=== PATIENT | male | born 1950 | race Caucasian/White ===

== ENCOUNTER → 2017-05-21 08:17 | Outpatient (CLI) | payer MEDICARE, MEDICAID, SELFPAY | DX: M79.671 Pain in right foot (principal); M79.672 Pain in left foot; G62.1 Alcoholic polyneuropathy | CPT/HCPCS: 99202 ==

== ENCOUNTER → 2017-06-19 12:34 | Outpatient (CLI) | payer MEDICARE, MEDICAID, SELFPAY ==
--- NOTE | 2017-06-19 | US_ITS ---
US Arterial Ankle Brachial Ind INDICATION: Leg pain, left-sided rest pain, bilateral claudication, hypertension, hyperlipidemia with peripheral vascular disease ORDERING PHYSICIAN: Ana Paula Maldonado DPM PATIENT AGE: 66 years TECHNIQUE: Segmental pressures obtained of both right and left leg. These are compared to brachial blood pressure to yield index at each level sampled including summary EDWARD. The data sheets from the procedure are available in PACS FINDINGS Rest study only performed today No prior studies available for comparison. Blood pressures reported are in millimeters mercury. RIGHT LEG EDWARD = 0.9. Right TBI is 0.9. Brachial BP: 109 Thigh BP: 88 Calf BP: 73 Ankle PT: 98 Ankle DP : 116 Digit =99 LEFT LEG EDWARD = 0.9. The left TBI 0.7 Brachial BPD: 112 Thigh BP: 88 Calf BP: 90 Ankle PT:97 Ankle DP: 115 Digit = 76 Pulses and waveforms: Diminished pulses with abnormal waveforms IMPRESSION: The ABIs are at lower limits of normal. Normal right TBI with borderline low left TBI suggesting small vessel disease on the left
== END ==
PROVIDERS: PCP Emergency Medicine; Visit Provider Podiatrist
DX: L97.922 Non-pressure chronic ulcer of unspecified part of left lower leg with fat layer exposed (principal)
CPT/HCPCS: 93922

== ENCOUNTER 2017-07-05 15:00 | Outpatient (RCR) | payer MEDICARE, MEDICAID, SELFPAY ==
--- NOTE | 2017-06-17 14:35 | HMH.PTOPWND ---
Rehab Outpt Wound Evaluation Rehab OP Wound Evaluation Start: 06/17/17 14:15 Freq: Status: Active Protocol: Document 06/17/17 14:16 PHOSILVERIO (Rec: 06/17/17 14:34 PHORNE [id number]) Electronically Signed By Royal Eaton, PT 06/17/17 14:16 Subjective/History History History Pt presents with ~ 6 mo hx of left plantar great toe wound with insidious onset of symptoms. He has hx of HTN, HL , COPD, gout, and peripheral neuropathy. He reports no c/o pain at this time and he has an offloading shoe insert that he wears at all times. He is a [facility] [place] home resident and they have been dressing with Medi- honey since the wound began. He also has hx of poor arterial circulation due to atherosclerosis. Wound Eval Wound Left Dorsal Great Toe Is This a Chronic Wound Yes Wound Length (cm) 0.6 Wound Width (cm) 0.3 Wound Depth (cm) 0.2 Wound Bed Appearance Dusky Red Percentage Granulated (%) 100 Wound Margins Description callous Drainage Description Serous Drainage Amount Scant Drainage Odor No Odor Wound Topical Solution/Irrigant Saline Irrigant Packing Type Collagen Primary Dressing Composite Wound Debridement Method Sharps Forceps Wound Debridement Amount of Tissue Minimal Removed Wound Debridement Result Healthy Tissue Revealed Wound Problems/Impairments Impairments Problems/Impairmments Impaired Walking Wound Care Needs Impaired Self Care/Self Management Prognosis Rehab Potential Good Clinical Impression Consistent with Diagnosis Yes Short Term Goals Number of Weeks 4 Decrease Wound Area Yes: by 25% Chcf Goals Number of Weeks 8 Decrease Wound Area Yes: by 75% Patient to be Ind w/ Home Wound Care/ Yes Dressing Changes Outpatient Therapy Plan of Care Treatment Plan May Include Therapeutic Exercise Including Home Yes Exercise Program Manual Therapy Techniques Yes Neuromuscular Re-education Yes Electrical Stimulation Yes Ultrasound/Phonophoresis Yes Orthotics/Bracing/Splinting
== END 2017-07-05 15:01 | disposition home or self-care (01) ==
LOC: PT 15:00
PROVIDERS: PCP Emergency Medicine; Visit Provider Podiatrist
DX: L97.522 Non-pressure chronic ulcer of other part of left foot with fat layer exposed (principal)
CPT/HCPCS: 97162; 97597

== ENCOUNTER → 2017-07-06 13:37 | Outpatient (REF) | payer MEDICARE, MEDICAID, SELFPAY ==
[2017-07-06 13:55] LABS: Anion Gap 8.6 mEq/L (5-15); Blood Urea Nitrogen 12 mg/dL (7-18); Carbon Dioxide 32 mmol/L (21.0-32.0); Chloride 102 mmol/L (98-107); Creatinine,Serum 1.08 mg/dL (0.70-1.30); Estimated Glomerular Filt Rate 68 ml/min (>60); GFR (African American) 83 ML/MIN (>60); Glucose 110 mg/dL (74-106); Potassium 4.6 mmoL/L (3.5-5.1); Sodium 138 mmol/L (136-145)
== END ==
LOC: LAB 13:37
PROVIDERS: Visit Provider Emergency Medicine
DX: E87.5 Hyperkalemia (principal)
CPT/HCPCS: 80048

== ENCOUNTER → 2017-08-04 14:06 | Outpatient (REF) | payer MEDICARE, MEDICAID, SELFPAY ==
[2017-08-04 15:24] LABS: Anion Gap 12.5 mEq/L (5-15); Blood Urea Nitrogen 10 mg/dL (7-18); Carbon Dioxide 32 mmol/L (21.0-32.0); Chloride 100 mmol/L (98-107); Creatinine,Serum 1.08 mg/dL (0.70-1.30); Estimated Glomerular Filt Rate 68 ml/min (>60); GFR (African American) 83 ML/MIN (>60); Glucose 94 mg/dL (74-106); Potassium 4.5 mmoL/L (3.5-5.1); Sodium 140 mmol/L (136-145)
== END ==
LOC: LAB 14:06
PROVIDERS: Visit Provider Emergency Medicine
DX: E87.5 Hyperkalemia (principal)
CPT/HCPCS: 80048

== ENCOUNTER → 2017-12-23 15:28 | Outpatient (CLI) | payer MEDICARE, MEDICAID, SELFPAY ==
--- NOTE | 2017-12-23 15:55 | XR_ITS ---
XR foot wt bearing LT 3V HISTORY: ITS.REASON: infection left great toe ORDERING PHYSICIAN: Ana Paula Maldonado DPM PATIENT AGE: 67 years COMPARISON: None FINDINGS: There is diffuse osteopenia. Further decreased density is present involving the distal aspect of the proximal phalanx with a bony erosion involving the distal and lateral aspect of the proximal phalanx. Slight transverse decreased density is also noted at this area could be related to fracture. Lucency is present at the distal aspect of the first metatarsal. The cortex is preserved at this area. Flexion deformity present of the toes There is an area of exostosis along the posterior and superior aspect of the calcaneus suggesting a Orlando deformity. Retrocalcaneal Fat pad is preserved. IMPRESSION: 1. Erosion of the distal lateral aspect of the proximal phalanx of the great toe with suspected nondisplaced transverse fracture. The erosive change may be related to osteomyelitis 2. Diffuse osteopenia. 3. Orlando deformity of the calcaneus
[2017-12-23 16:13] LABS: Basophils # 0.1 K/mm3 (0-0.2); Basophils % 0.9 % (0.1-2.0); Eosinophils # 0.5 K/mm3 (0.0-0.4); Eosinophils % 4.3 % (0.1-12.0); Hematocrit 55.1 % (42.0-52.0); Hemoglobin 17.1 g/dL (14.1-18.0); Lymphocytes # 1.9 K/mm3 (0.7-4.5); Lymphocytes % 18.1 K/mm3 (10-50); Mean Corpuscular Hemoglobin 29.4 pg (27.0-31.2); Mean Corpuscular Volume 94.9 fl (80-94); Mean Platelet Volume 8.4 fl (7.4-10.4); Monocytes # 1.1 K/mm3 (0.1-1.0); Monocytes % 10.6 % (1.7-9.3); Neutrophils # 6.9 K/mm3 (1.8-7.8); Neutrophils % 66.2 % (37.0-80.0); Platelet Count 554 K/mm3 (142-424); Red Blood Count 5.81 M/mm3 (4.60-6.20); Red Cell Distribution Width 15.6 % (11.5-17.5); White Blood Count 10.5 K/mm3 (4.8-10.8)
[2017-12-23 16:53] LABS: Erythrocyte Sedimentation Rate 41 mm/hr (0-20)
[2017-12-23 18:09] LABS: C-Reactive Protein 7.3 mg/L (0.0-0.9)
== END ==
PROVIDERS: PCP Emergency Medicine; Visit Provider Podiatrist
DX: Z51.89 Encounter for other specified aftercare (principal); Z91.81 History of falling
CPT/HCPCS: 36415; 73630; 85025; 85651; 86140

== ENCOUNTER → 2018-01-01 07:49 | Outpatient (CLI) | payer MEDICARE, MEDICAID, SELFPAY ==
--- NOTE | 2018-01-01 07:50 | MR_ITS ---
MR foot LT wo/w con Ordering Physician: Ana Paula Maldonado DPM Patient Age: 67 years: Male HISTORY: ITS.REASON: pain Cellulitis great toe with suspect osteomyelitis. Swelling. Spot planar surface of the foot that will not heal. Past one year. Worse past 2 weeks. TECHNIQUE: Multiplanar multisequence imaging. Includes T1, & STIR image in all 3 planes . Postcontrast coronal and axial images following 17 mL ProHance. COMPARISON :Plain films left foot 12/23/2017 FINDINGS GREAT TOE Transverse fracture is seen at the distal most aspect of the proximal phalanx great toe. This was noted on previous plain films and there appears to be significant over one bone width dorsal displacement of the distal fracture fragment as suggested on the sagittal image 7. Irregular bone is seen at the fracture site. Bone edema is seen throughout the entire proximal phalanx including extending to the base.. Postcontrast images show diffuse enhancement throughout the proximal phalanx, proximal to the transverse fracture-findings are highly suspect for osteomyelitis throughout the proximal phalanx. I would note that in contrast the distal fracture fragment at the very head of the proximal phalanx does not enhance, axial image 13 There is bone edema enhancement enhancement of the distal phalanx. Again suspect for osteomyelitis distal phalanx great toe. Diffuse soft tissue edema with enhancing soft tissues of throughout the great toe. Second Toe. Prominent flexion hammertoe deformity. The sagittal images show a well formed proximal phalanx with prominent flexion at PIP joint. However at the DIP joint the head of middle phalanx is not well visualized and there is a small area of fluid signal here at & overlying the DIP joint measuring 4 times nearly 5 mm length, as seen on on sagittal image 17... I do not see definitive enhancement to support or confirm osteomyelitis at second toe. And there seems to be normal signal otherwise within the distal phalanx & proximal aspect of the middle phalanx. No significant bone edema... Follow-up coned-down plain films of the second toe may be helpful in follow-up Third Toe: also demonstrates prominent flexion/hammertoe deformity however is seen on sagittal image 20 the DIP joint of the third toe has a more normal appearance as does the head of middle phalanx. Flexion deformity also at fourth and fifth toe noted . The metatarsals appear intact. There is some mild edema from the great toe tracking proximally into the soft tissues at ball of foot. Also some minimal edema tracking along along the tendon sheath for I believe the the flexor hallucis longest tendon in this region. The sesamoids appear intact with normal signal. I would also note mild edema reflecting cellulitis with subtle enhancement extending to the soft tissues just at the plantar aspect of the cuneiform bones.. This feature most evident at I believe quadratus plantae /adductor hallucismuscle region as seen on coronal postcontrast image 23-25q day There are some mild degenerative subchondral cystic changes about the tarsometatarsal joints suggested on coronal image 13 ----IMPRESSION 1. LEFT GREAT TOE: Diffuse soft tissue swelling & cellulitis great toe. Fracture transversing distal most aspect proximal phalanx great toe. . Posterior displacement of distal fracture fragment, ( w/greater than one bone width posterior displacement.) Enhancing marrow edema proximal phalanx. This most evident towards fracture but is also seen throughout the entire proximal fragment phalanx great toe,-extending to the base proximal phalanx.-. Appearance concerning & suspect for for developing osteomyelitis (particularly since the distal fragment proximal phalanx does not enhance) Edema & mild enhancement throughout
[2018-01-01 08:17] LABS: Blood Urea Nitrogen 11 mg/dL (7-18); Creatinine,Serum 1.06 mg/dL (0.70-1.30); Estimated Glomerular Filt Rate 70 ml/min (>60); GFR (African American) 84 ML/MIN (>60)
--- NOTE | 2018-01-01 09:10 | HMH.ITSHM ---
ACETAMINOPHEN ALLOPURINOL ASPIRIN ATENOLOL MULTIVITAMIN OYST ARPIT-VIT D SIMVASTATIN TRAMADOL WARFARIN CIPRO CLINDAMYCIN
--- NOTE | 2018-01-01 15:39 | XR_ITS ---
XR chest 2V HISTORY: ITS.REASON: HTN,H/O TOBACCO DEPENDENCE ORDERING PHYSICIAN: Ana Paula Maldonado DPM PATIENT AGE: 67 years COMPARISON: 01/05/2014 FINDINGS: Unremarkable cardiovascular structures. There is diffuse prominence of the interstitium. No lobar consolidation or collapse. No acute bony anomalies. IMPRESSION: Diffuse interstitial fibrosis
[2018-01-01 15:53] LABS: Basophils # 0.1 K/mm3 (0-0.2); Basophils % 0.7 % (0.1-2.0); Eosinophils # 0.3 K/mm3 (0.0-0.4); Eosinophils % 2.5 % (0.1-12.0); Hematocrit 55.3 % (42.0-52.0); Hemoglobin 17.7 g/dL (14.1-18.0); Lymphocytes # 1.9 K/mm3 (0.7-4.5); Lymphocytes % 16.2 K/mm3 (10-50); Mean Corpuscular Hemoglobin 29.6 pg (27.0-31.2); Mean Corpuscular Volume 92.4 fl (80-94); Mean Platelet Volume 8.9 fl (7.4-10.4); Monocytes # 1.1 K/mm3 (0.1-1.0); Monocytes % 9.3 % (1.7-9.3); Neutrophils # 8.4 K/mm3 (1.8-7.8); Neutrophils % 71.3 % (37.0-80.0); Platelet Count 505 K/mm3 (142-424); Red Blood Count 5.98 M/mm3 (4.60-6.20); White Blood Count 11.8 K/mm3 (4.8-10.8)
[2018-01-01 16:42] LABS: Hemoglobin A1C 6.1 % (0.0-7.0)
[2018-01-01 16:43] LABS: Erythrocyte Sedimentation Rate 21 mm/hr (0-20)
== END ==
PROVIDERS: Orthopaedic Surgery; PCP Emergency Medicine; Visit Provider Podiatrist
DX: L03.032 Cellulitis of left toe (principal); L97.521 Non-pressure chronic ulcer of other part of left foot limited to breakdown of skin; S92.402A Displaced unspecified fracture of left great toe, initial encounter for closed fracture
CPT/HCPCS: 36415; 71046; 73720; 82565; 83036; 84520; 85025; 85651; 93005; A9576

== ENCOUNTER → 2018-01-14 11:35 | Outpatient (CLI) | payer MEDICARE, MEDICAID, SELFPAY ==
--- NOTE | 2018-01-14 11:37 | CA_ITS ---
PROCEDURE: 2-D M-mode and color Doppler study INDICATIONS FOR THE TEST: Chest pain COPD+ Heart Murmur Tobacco Smoking+ Palpitations Fatigue Syncope Edema Hypertension+Diabetes Mellitus Rheumatic Fever SOB VALIENTE Obesity Hyperlipidemia+ Family History HD Additional History Afib, CAD, MV disease PATIENT INFORMATION HEIGHT: 69 WEIGHT: 185 GENDER: Male B/P: 122/64 2-D/M-MODE INTERPRETATION: 2-D MEASUREMENTS OBSERVED VALUES IN CMS Right Ventricular Dimension (RVDd) 3.1 Interventricular Septum (Thickness)(IVsd) 0.9 Left Ventricular Internal Dimensions(LVIDd) 5.7 Left Ventricular Posterior Wall (Thickness)(LVPWd) 0.9 Aortic Root 4.1 Aortic Cusp Separation 2.4 Left Atrial Dimensions (LAD) 5.2 2D 1. Left atrium is moderately enlarged, left ventricle is normal size, visually estimated ejection fraction of 40-45%, there is mild left ventricular global hypokinesis. 2. The right atrium is moderately enlarged, right ventricle is mildly dilated with normal contractility. 3. The aortic valve is thickened and calcified leaflet continue to display mobility. 4. The mitral valve has mitral calcification, leaflets are minimally thickened. 5. The pulmonic valve is poorly visualized. 6. No significant pericardial effusion noted. DOPPLER INTERROGATION: Doppler interrogation of the aortic, mitral and tricuspid valvular presence of moderate mitral and mild tricuspid regurgitation, tricuspid regurgitation, jet velocity is insufficient for calculation of the right ventricular systolic pressure, diastolic parameters are inconclusive. CONCLUSION: 1. Moderate biatrial enlargement, normal left ventricular size, visually estimated ejection fraction of 40-45% with mild left ventricular global hypokinesis. 2. Moderate mitral and mild tricuspid regurgitation 3. No significant pericardial effusion noted.
--- NOTE | 2018-01-14 11:41 | NM_ITS ---
History and Indications: Obesity, hypertension, hyperlipidemia, tobacco use, family history and syncope Procedure: Patient received a 0.4 mg of Lexiscan, resting heart rate was 90 bpm resting blood pressure 122/64 with Lexiscan maximum heart rate achieved was 1 30 bpm which is less than 85% of the maximum predicted heart rate and a blood pressure was 111/63. With Lexiscan no symptoms reported. Electrocardiogram: Resting echocardiogram showed atrial fibrillation, with Lexiscan less than 1.[address] segment depression noted from the baseline EKG. The EKG portion of the Lexiscan Myoview is nondiagnostic. Cardiac stress and resting SPECT images: Cardiac stress and resting SPECT images were obtained using technetium 99 Myoview 32.2 mCi at stress and 10.5 mCi at rest. Gated SPECT further analysis of segmental wall motion and calculation of the ejection fraction also done. Cardiac stress and rest images show uniform myocardial activity without segmental perfusion abnormality, computer derived ejection fraction 38% with no regional wall motion abnormality, however during this study patient was in atrial fibrillation which may underestimate the ejection fraction by gated SPECT, right ventricle is not well visualized. Conclusion: 1. The EKG portion of the Lexiscan Myoview is nondiagnostic. 2. No scintigraphic evidence of reversible ischemia seen, computer derived ejection fraction is 38% with no regional wall motion abnormality, however during this study patient was in atrial fibrillation underestimate the ejection fraction by gated SPECT, and echocardiogram will be better modality to evaluate left ventricular systolic function.
--- NOTE | 2018-01-14 12:28 | HMH.ITSHM ---
ALLOPURINOL ASA ATENOLOL LOVENOX SIMVASTATIN SPIRIVA TRAMADOL
== END ==
PROVIDERS: PCP Emergency Medicine; Visit Provider Nurse Practitioner Family
DX: I25.10 Atherosclerotic heart disease of native coronary artery without angina pectoris (principal); I34.8 Other nonrheumatic mitral valve disorders; I48.91 Unspecified atrial fibrillation
CPT/HCPCS: 78452; 93017; 93306; A9502; J2785

== ENCOUNTER → 2018-02-06 16:29 | Outpatient (CLI) | payer MEDICARE, MEDICAID, SELFPAY ==
--- NOTE | 2018-02-06 16:48 | XR_ITS ---
XR foot wt bearing LT 3V HISTORY: Follow-up osteomyelitis ORDERING PHYSICIAN: Ana Paula Maldonado DPM PATIENT AGE: 67 years COMPARISON: 12/23/2017 FINDINGS: Progressive erosive changes are present at the interphalangeal joint of the great toe with lateral angulation of the distal phalanx. There is diffuse osteopenia with loss of the joint space of the interphalangeal joint. Flexion deformity involves the second through fifth digits. IMPRESSION: Progressive osteomyelitis and septic arthritis of the interphalangeal joint of the great toe
[2018-02-06 17:16] LABS: C-Reactive Protein 3.8 mg/L (0.0-0.9)
[2018-02-06 18:05] LABS: Erythrocyte Sedimentation Rate 16 mm/hr (0-20)
== END ==
PROVIDERS: PCP Emergency Medicine; Visit Provider Orthopaedic Surgery
DX: Z01.818 Encounter for other preprocedural examination (principal); M86.9 Osteomyelitis, unspecified; L03.032 Cellulitis of left toe
CPT/HCPCS: 36415; 73630; 85651; 86140

== ENCOUNTER → 2018-03-25 13:37 | Outpatient (CLI) | payer MEDICARE, MEDICAID, SELFPAY ==
--- NOTE | 2018-03-25 13:41 | XR_ITS ---
XR foot LT min 3V HISTORY: Follow-up amputation ITS.REASON: sp LT foot 1st toe amputation dos 02/17/18 ORDERING PHYSICIAN: Tian Lentz MD PATIENT AGE: 67 years COMPARISON: 02/06/2018 FINDINGS: There has been interval amputation at the first metatarsophalangeal junction. There is some minimal soft tissue calcification at the amputation site. The distal aspect of the first metatarsal shows no obvious erosive change. There is no fracture proximal phalanx of the fourth toe. Flexion deformity involves the toes. IMPRESSION: Status post amputation at the first metatarsophalangeal junction with no erosive change at this area.
== END ==
PROVIDERS: PCP Emergency Medicine; Visit Provider Orthopaedic Surgery
DX: Z89.412 Acquired absence of left great toe (principal)
CPT/HCPCS: 73630

== ENCOUNTER → 2019-01-02 12:44 | Outpatient (CLI) | payer MEDICARE, MEDICAID, SELFPAY ==
--- NOTE | 2019-01-02 12:46 | CA_ITS ---
APPROVED REPORT EXAM: Comprehensive 2D, Doppler, and color-flow Echocardiogram Gerontological Nurse Practitioner: Courtney Latif RVT Ht: 6 ft 0 in Wt: 176lbs BSA: 2.02 BP: 142/76 mmHg Indications: Congestive Heart Failure, COPD, Shortness of Breath, Atrial Fibrillation, CAD, Hyperlipidemia, Cardiomyopathy, Hypertension/HDD,Alcoholic cirrhosis 2D Dimensions LVOT 2.10 cm (M/F) 1.5-2.5 M-Mode Dimensions RVDd 2.50 cm (0.9-2.6) LA Diam 4.30 cm (1.9-4.0) LVDd 4.70 cm (3.5-5.7) Ao Diam 3.50 cm (2.0-3.7) LVDs 3.60 cm (3.5-5.7) AV Cusp 1.50 cm (1.5-2.6) IVSd 1.50 cm (0.6-1.1) PWd 1.20 cm (0.6-1.1) EF (Teich) 46.70% FS 23.40% EDV (Teich) 102.00 mL ESV (Teich) 54.40 mL LV Diastology MED E' 7.80 (< 7 cm/sec) LAT E' 14.60 (<10 cm/sec) Aortic Valve AoV Peak Alexei. 74.50 (50-130 cm/s) AI PHT 402.00 ms AO Peak GR. 2.00 mmHg Mitral Valve MV Mean Gr. 1.00 (<2mmHg) MV PHT 107.00 ms MVA PHT 2.1 cm2 Pulmonary Valve PA Accel Time 134.00 (>120 msec) Tricuspid Valve TR P. Velocity 288.00 cm/s Left Ventricle Left atrium is moderately enlarged, left ventricle is normal size, visually estimated ejection fraction 45% with no regional wall motion abnormality, diastolic parameters are inconclusive. Right Ventricle Right atrium and right ventricular moderately enlarged with normal contractility. Aortic Valve Aortic valve is thickened and calcified leaflet continue to display good mobility, there is no aortic stenosis, there is mild aortic insufficiency. Mitral Valve Mitral valve leaflets are minimally thickened, posterior mitral leaflet is redundant, there is no mitral stenosis, there is moderate mitral regurgitation. Tricuspid Valve Tricuspid valve is grossly normal, there is mild tricuspid regurgitation, tricuspid regurgitation jet velocity is inadequate for calculation of the right ventricular systolic pressure. Pulmonic Valve Pulmonic valve is poorly visualized. Great Vessels Aortic root is enlarged measuring 3.8 cm Pericardium No significant pericardial effusion noted. Conclusion 1. Moderate biatrial enlargement, normal left ventricular size, visually estimated ejection fraction 45% with no regional wall motion abnormality, diastolic parameters are inconclusive. 2. Moderately enlarged right ventricle with normal contractility. 3. Aortic root is mildly enlarged, aortic valve is minimally thickened and fibrosed, there is no aortic stenosis, there is mild aortic insufficiency. 4. Redundant posterior mitral leaflet, there is no mitral stenosis, there is moderate mitral regurgitation 5. Mild tricuspid regurgitation 6. No significant pericardial effusion noted. Electronically signed by : Bradford Avalos, 01/02/2019 14:22:47
== END ==
PROVIDERS: PCP Emergency Medicine; Visit Provider Physician Assistant
DX: I42.9 Cardiomyopathy, unspecified; E78.2 Mixed hyperlipidemia; I11.9 Hypertensive heart disease without heart failure; I25.10 Atherosclerotic heart disease of native coronary artery without angina pectoris; I34.8 Other nonrheumatic mitral valve disorders; I48.2 Chronic atrial fibrillation; I73.9 Peripheral vascular disease, unspecified; J44.9 Chronic obstructive pulmonary disease, unspecified; K70.30 Alcoholic cirrhosis of liver without ascites; R06.02 Shortness of breath; Z79.01 Long term (current) use of anticoagulants
CPT/HCPCS: 93306

== ENCOUNTER → 2019-01-10 07:52 | Outpatient (CLI) | payer MEDICARE, MEDICAID, SELFPAY ==
[2019-01-10 09:30] LABS: Potassium 5.4 mmoL/L (3.5-5.1)
== END ==
PROVIDERS: Visit Provider Emergency Medicine
DX: E87.5 Hyperkalemia (principal)
CPT/HCPCS: 84132

== ENCOUNTER → 2019-02-10 12:29 | Outpatient (CLI) | payer MEDICARE, MEDICAID, SELFPAY ==
[2019-02-10 12:46] LABS: Potassium 4.4 mmoL/L (3.5-5.1)
== END ==
PROVIDERS: Visit Provider Emergency Medicine
DX: E87.5 Hyperkalemia (principal)
CPT/HCPCS: 84132

== ENCOUNTER → 2019-02-20 13:51 | Outpatient (CLI) | payer MEDICARE, MEDICAID, SELFPAY ==
[2019-02-20 15:19] LABS: INR 2.79 (0.9-1.1); Prothrombin Time 27.6 seconds (9.4-11.8)
== END ==
PROVIDERS: Visit Provider Emergency Medicine
DX: Z51.81 Encounter for therapeutic drug level monitoring (principal); Z79.01 Long term (current) use of anticoagulants; I34.8 Other nonrheumatic mitral valve disorders
CPT/HCPCS: 85610

== ENCOUNTER → 2019-02-28 13:06 | Outpatient (CLI) | payer MEDICARE, MEDICAID, SELFPAY ==
[2019-02-28 15:48] LABS: Potassium 5.8 mmoL/L (3.5-5.1)
== END ==
LOC: LAB 13:06 → LAB.DROPOF 14:04
PROVIDERS: Visit Provider Emergency Medicine
DX: Z51.81 Encounter for therapeutic drug level monitoring (principal); E87.5 Hyperkalemia
CPT/HCPCS: 84132

== ENCOUNTER → 2019-03-22 09:01 | Outpatient (CLI) | payer MEDICARE, MEDICAID, SELFPAY ==
[2019-03-22 10:12] LABS: Potassium 5.2 mmoL/L (3.5-5.1)
== END ==
PROVIDERS: Visit Provider Emergency Medicine
DX: E87.5 Hyperkalemia (principal)
CPT/HCPCS: 84132

== ENCOUNTER → 2019-04-26 11:06 | Outpatient (CLI) | payer MEDICARE, MEDICAID, SELFPAY ==
[2019-04-26 11:23] LABS: Potassium 5.4 mmoL/L (3.5-5.1)
== END ==
PROVIDERS: Visit Provider Emergency Medicine
DX: E87.5 Hyperkalemia (principal)
CPT/HCPCS: 84132

== ENCOUNTER → 2019-05-13 12:06 | Outpatient (POV) | payer MEDICARE, MEDICAID, SELFPAY | PROVIDERS: Visit Provider Internal Medicine Nephrology | DX: Z00.00 Encounter for general adult medical examination without abnormal findings (principal) ==

== ENCOUNTER → 2019-05-15 03:42 | Outpatient (REF) | payer MEDICARE, MEDICAID, SELFPAY | LOC: LAB.DROPOF 03:42 | PROVIDERS: Visit Provider Emergency Medicine | DX: E87.5 Hyperkalemia (principal) | CPT/HCPCS: 84132 ==

== ENCOUNTER → 2019-05-18 03:02 | Outpatient (REF) | payer MEDICARE, MEDICAID, SELFPAY ==
[2019-05-18 03:26] LABS: Potassium 5.8 mmoL/L (3.5-5.1)
== END ==
LOC: LAB 03:02
PROVIDERS: Visit Provider Emergency Medicine
DX: E78.5 Hyperlipidemia, unspecified (principal)
CPT/HCPCS: 84132

== ENCOUNTER → 2019-05-27 14:12 | Outpatient (CLI) | payer MEDICARE, MEDICAID, SELFPAY ==
[2019-05-27 16:39] LABS: INR 12.18 (0.9-1.1); Prothrombin Time 112.5 seconds (9.4-11.8)
== END ==
PROVIDERS: Visit Provider Emergency Medicine
DX: Z51.81 Encounter for therapeutic drug level monitoring (principal); Z79.01 Long term (current) use of anticoagulants
CPT/HCPCS: 85610

== ENCOUNTER 2019-06-05 11:46 | Outpatient (CLI) | payer MEDICARE, MEDICAID, SELFPAY ==
[2019-06-05 11:47] VITALS: BMI 24.5
[2019-06-05 12:12] LABS: Basophils # 0.1 K/mm3 (0-0.2); Basophils % 0.9 % (0.1-2.0); Eosinophils # 0.6 K/mm3 (0.0-0.4); Eosinophils % 3.5 % (0.1-12.0); Hematocrit 50.7 % (42.0-52.0); Hemoglobin 15.6 g/dL (14.1-18.0); Lymphocytes # 2.1 K/mm3 (0.7-4.5); Lymphocytes % 12.8 % (10-50); Mean Corpuscular HGB Conc 30.8 g/dL (31.8-35.4); Mean Corpuscular Hemoglobin 26.3 pg (27.0-31.2); Mean Corpuscular Volume 85.4 fl (80-94); Mean Platelet Volume 9.7 fl (7.4-10.4); Monocytes # 1.2 K/mm3 (0.1-1.0); Monocytes % 7.3 % (1.7-9.3); Neutrophils # 12.2 K/mm3 (1.8-7.8); Neutrophils % 75.5 % (37.0-80.0); Red Blood Count 5.94 M/mm3 (4.60-6.20); Red Cell Distribution Width 17.8 % (11.5-17.5); White Blood Count 16.2 K/mm3 (4.8-10.8)
[2019-06-05 12:14] LABS: MANUAL DIFFERENTIAL MANUAL DIFFERENTIAL (MANUAL DIFF); Platelet Count 1052 K/mm3 (142-424)
[2019-06-05 12:20] LABS: Lymphocytes % 9 % (10-50); Monocytes % 8 % (2-9); Neutrophils % 83 % (42-76); Platelet Estimate Marked Increase; RBC Morphology Normal; Total Cells Counted 100
[2019-06-05 12:39] VITALS: BP 96/62; PULSE 98; RESP 20; O2SAT 99
[2019-06-05 13:08] VITALS: BP 95/68; PULSE 80; RESP 18; TEMP 36.6; O2SAT 98
== END 2019-06-05 13:10 | disposition home or self-care (01) ==
LOC: INF 11:46
PROVIDERS: PCP Emergency Medicine; Visit Provider Internal Medicine Medical Oncology
DX: D45 Polycythemia vera (principal)
CPT/HCPCS: 36415; 81206; 81270; 85007; 85025; 99195

== ENCOUNTER → 2019-06-08 14:30 | Outpatient (CLI) | payer MEDICARE, MEDICAID, SELFPAY | PROVIDERS: Visit Provider Emergency Medicine | DX: D75.1 Secondary polycythemia (principal) | CPT/HCPCS: 84132 ==

== ENCOUNTER → 2019-06-12 13:54 | Outpatient (CLI) | payer MEDICARE, MEDICAID, SELFPAY ==
--- NOTE | 2019-06-12 13:56 | CT_ITS ---
PROCEDURE: CT LUNG SCREENING CLINICAL INDICATION: Greater than 30 pack-year smoking history, asymptomatic for lung cancer COMPARISON: No exams were available for comparison TECHNIQUE: The exam was performed on a GE Light Speed [address] scanner using 2.90 mGy CTDI. A low dose helical CT CHEST was performed on a multi-detector scanner. All CT scans at the facility use one or more dose reduction, viz: automated exposure control, ma/kV adjustment per patient size (including targeted exams where dose is matched to indication, i.e. head), or iterative reconstruction technique. The LDCT was performed in a facility that meets the criteria for the screening program. Data regarding this exam was submitted to ACR which is an approved registry. The order for this exam indicates that it came as a result of a lung cancer screening counseling shard decision-making visit that included all the elements required of such a visit including smoking cessation. The radiologist interpreting this exam meets the CMS criteria for the LDCT lung cancer screening program. The exam is reported using the Lung-RADS classification scale and reported to the ACR registry. NOTE: This study was performed for the specific purposes of lung cancer screening and is not an alternative to diagnostic chest CT. RADIATION DOSE: CTDI vol(CT dose Index-volume) = 2.90mG DLP (Dose Length Product) = 108.12 mGcm FINDINGS: There are severe centrilobular emphysematous changes with pulmonary fibrosis. There are scattered parenchymal opacities throughout both lungs. This includes a sub solid 8 mm opacity in the right upper lobe series 4, image 23, sub solid opacity right upper lobe posteriorly image 43 series 4, 9 mm irregular nodular density right middle lobe inferiorly image 68 series 4, 1.4 cm irregular opacity right middle lobe medially image 68 series 4. On the left there is a flat like area of increased density at 2 by 1.5 cm image 45 series 4. In addition there is an irregular opacity in the left lower lobe and 1.4 cm image 65 series 4 probably related to some scarring and adjacent vessels. OTHER FINDINGS: The severe vascular calcification. Coronary artery calcification. Mild cardiomegaly. Cholelithiasis. There is fusiform dilatation of the ascending aorta measuring up to 4.6 cm IMPRESSION: Lung rads category 4 suspicious. Multiple pulmonary nodular opacities possibly inflammatory/infectious or due to scarring. Cannot exclude neoplasm. Recommend dedicated CT chest without and with contrast in 3 months for further evaluation. Severe centrilobular emphysema with COPD and pulmonary fibrosis. Cardiomegaly with coronary artery disease Fusiform aneurysmal dilatation of the ascending aorta measuring up to 4.6 cm Dictated by: John Hernandez MD 06/13/2019 14:38 Electronically signed by John Hernandez MD in [place] 06/13/2019 14:38
== END ==
PROVIDERS: PCP Emergency Medicine; Visit Provider Internal Medicine Medical Oncology
DX: Z87.891 Personal history of nicotine dependence (principal); Z12.2 Encounter for screening for malignant neoplasm of respiratory organs

== ENCOUNTER → 2019-06-18 12:43 | Outpatient (CLI) | payer MEDICARE, MEDICAID, SELFPAY ==
[2019-06-18 13:00] LABS: Basophils # 0.2 K/mm3 (0-0.2); Basophils % 1.5 % (0.1-2.0); Eosinophils # 0.5 K/mm3 (0.0-0.4); Eosinophils % 4.2 % (0.1-12.0); Hematocrit 51.1 % (42.0-52.0); Hemoglobin 15.9 g/dL (14.1-18.0); Lymphocytes # 1.6 K/mm3 (0.7-4.5); Lymphocytes % 12.7 % (10-50); Mean Corpuscular HGB Conc 31.2 g/dL (31.8-35.4); Mean Corpuscular Hemoglobin 26.7 pg (27.0-31.2); Mean Corpuscular Volume 85.5 fl (80-94); Mean Platelet Volume 9.3 fl (7.4-10.4); Monocytes # 1.1 K/mm3 (0.1-1.0); Monocytes % 8.3 % (1.7-9.3); Neutrophils # 9.3 K/mm3 (1.8-7.8); Neutrophils % 73.2 % (37.0-80.0); Red Blood Count 5.97 M/mm3 (4.60-6.20); Red Cell Distribution Width 16.9 % (11.5-17.5); White Blood Count 12.6 K/mm3 (4.8-10.8)
[2019-06-18 13:13] LABS: Platelet Count 1296 K/mm3 (142-424)
== END ==
PROVIDERS: Visit Provider Internal Medicine Medical Oncology
DX: D75.1 Secondary polycythemia (principal)
CPT/HCPCS: 36415; 85025

== ENCOUNTER → 2019-06-25 14:51 | Outpatient (CLI) | payer MEDICARE, MEDICAID, SELFPAY ==
[2019-06-25 16:25] LABS: Potassium 4.5 mmoL/L (3.5-5.1)
== END ==
PROVIDERS: Visit Provider Emergency Medicine
DX: E87.5 Hyperkalemia (principal)
CPT/HCPCS: 84132

== ENCOUNTER → 2019-06-28 11:15 | Outpatient (CLI) | payer MEDICARE, MEDICAID, SELFPAY ==
[2019-06-28 11:43] LABS: INR 2.21 (0.9-1.1); Prothrombin Time 22.1 seconds (9.4-11.8)
== END ==
PROVIDERS: Visit Provider Emergency Medicine
DX: Z51.81 Encounter for therapeutic drug level monitoring (principal); Z79.01 Long term (current) use of anticoagulants
CPT/HCPCS: 85610

== ENCOUNTER → 2019-07-24 04:56 | Outpatient (REF) | payer MEDICARE, MEDICAID, SELFPAY ==
[2019-07-24 05:38] LABS: Chloride 101 mmol/L (98-107); Potassium 5.2 mmoL/L (3.5-5.1); Sodium 142 mmol/L (136-145)
[2019-07-24 05:41] LABS: Alanine Aminotransferase 17 U/L (12-78); Albumin Level 3.7 g/dl (3.5-5.0); Albumin/Globulin Ratio 0.9 (1.1-1.8); Alkaline Phosphatase 123 U/L (38-126); Anion Gap 14.2 mEq/L (5-15); Aspartate Amino Transferase 33 U/L (17-59); Bilirubin,Total 0.6 mg/dl (0.2-1.3); Blood Urea Nitrogen 19 mg/dl (9-20); Carbon Dioxide 32 mmol/L (22.0-30.0); Estimated Glomerular Filt Rate 96 ml/min (>60); GFR (African American) 116 ML/MIN (>60); Globulin 4.3 g/dL (1.3-3.2)
[2019-07-24 05:42] LABS: Calcium 9.7 mg/dl (8.4-10.2); Glucose 103 mg/dl (74-100)
== END ==
LOC: LAB 04:56
DX: D75.1 Secondary polycythemia (principal)
CPT/HCPCS: 80053

== ENCOUNTER → 2019-07-25 11:37 | Outpatient (CLI) | payer MEDICARE, MEDICAID, SELFPAY | PROVIDERS: Visit Provider Emergency Medicine | DX: D75.1 Secondary polycythemia (principal) | CPT/HCPCS: 84132 ==

== ENCOUNTER → 2019-08-14 18:06 | Outpatient (CLI) | payer MEDICARE, MEDICAID, SELFPAY ==
[2019-08-14 18:15] LABS: Basophils # 0.5 K/mm3 (0-0.2); Basophils % 5.1 % (0.1-2.0); Eosinophils # 0.5 K/mm3 (0.0-0.4); Eosinophils % 5.1 % (0.1-12.0); Hemoglobin 17.1 g/dL (14.1-18.0); Lymphocytes # 1.5 K/mm3 (0.7-4.5); Lymphocytes % 17.1 % (10-50); Mean Corpuscular HGB Conc 30.8 g/dL (31.8-35.4); Mean Corpuscular Hemoglobin 29.8 pg (27.0-31.2); Mean Corpuscular Volume 96.8 fl (80-94); Mean Platelet Volume 9.3 fl (7.4-10.4); Monocytes # 0.7 K/mm3 (0.1-1.0); Monocytes % 7.7 % (1.7-9.3); Neutrophils # 6.3 K/mm3 (1.8-7.8); Neutrophils % 70.1 % (37.0-80.0); Platelet Count 532 K/mm3 (142-424); Red Blood Count 5.75 M/mm3 (4.60-6.20); Red Cell Distribution Width 22.1 % (11.5-17.5); White Blood Count 8.9 K/mm3 (4.8-10.8)
[2019-08-14 18:19] LABS: Hematocrit 55.7 % (42.0-52.0)
== END ==
PROVIDERS: Visit Provider Emergency Medicine
DX: Z51.81 Encounter for therapeutic drug level monitoring (principal); Z79.01 Long term (current) use of anticoagulants; Z79.899 Other long term (current) drug therapy
CPT/HCPCS: 85025

== ENCOUNTER → 2019-08-21 04:53 | Outpatient (CLI) | payer MEDICARE, MEDICAID, SELFPAY ==
[2019-08-21 05:38] LABS: Potassium 4.9 mmoL/L (3.5-5.1)
[2019-08-21 05:40] LABS: INR 2.06 (0.9-1.1); Prothrombin Time 20.7 seconds (9.4-11.8)
== END ==
PROVIDERS: PCP Emergency Medicine; Visit Provider Emergency Medicine
DX: Z51.81 Encounter for therapeutic drug level monitoring (principal); Z79.01 Long term (current) use of anticoagulants; Z79.899 Other long term (current) drug therapy
CPT/HCPCS: 84132; 85610

== ENCOUNTER 2019-09-09 09:30 | Outpatient (CLI) | payer MEDICARE, MEDICAID, SELFPAY ==
[2019-09-09 09:37] VITALS: BMI 26.6
[2019-09-09 10:01] LABS: Hematocrit 50.2 % (42.0-52.0); Hemoglobin 16.5 g/dL (14.1-18.0)
[2019-09-09 10:40] VITALS: BP 105/70; PULSE 80; RESP 18
--- NOTE | 2019-09-09 11:42 | PC.NURSE ---
1040 - THERAPEUTIC PHLEBOTOMY COMPLETE AT THIS TIME.
== END 2019-09-09 10:50 | disposition home or self-care (01) ==
LOC: INF 09:35
PROVIDERS: Visit Provider Internal Medicine Medical Oncology
DX: D75.1 Secondary polycythemia (principal)
CPT/HCPCS: 36415; 85014; 85018; 99195

== ENCOUNTER → 2019-09-14 12:59 | Outpatient (CLI) | payer MEDICARE, MEDICAID, SELFPAY ==
[2019-09-14 13:24] LABS: Basophils # 0.2 K/mm3 (0-0.2); Basophils % 2.2 % (0.1-2.0); Eosinophils # 0.2 K/mm3 (0.0-0.4); Eosinophils % 2.4 % (0.1-12.0); Hematocrit 51.1 % (42.0-52.0); Hemoglobin 16.7 g/dL (14.1-18.0); Lymphocytes # 1.3 K/mm3 (0.7-4.5); Lymphocytes % 13.1 % (10-50); Mean Corpuscular HGB Conc 32.6 g/dL (31.8-35.4); Mean Corpuscular Hemoglobin 33.4 pg (27.0-31.2); Mean Corpuscular Volume 102.5 fl (80-94); Mean Platelet Volume 8.7 fl (7.4-10.4); Monocytes # 0.6 K/mm3 (0.1-1.0); Monocytes % 6.3 % (1.7-9.3); Neutrophils # 7.7 K/mm3 (1.8-7.8); Platelet Count 541 K/mm3 (142-424); Red Blood Count 4.99 M/mm3 (4.60-6.20); Red Cell Distribution Width 22.3 % (11.5-17.5); White Blood Count 10.1 K/mm3 (4.8-10.8)
[2019-09-14 13:29] LABS: Chloride 102 mmol/L (98-107); Potassium 3.6 mmoL/L (3.5-5.1); Sodium 137 mmol/L (136-145)
[2019-09-14 13:31] LABS: Blood Urea Nitrogen 15 mg/dl (9-20); Estimated Glomerular Filt Rate 96 ml/min (>60); GFR (African American) 116 ML/MIN (>60)
[2019-09-14 13:32] LABS: Alanine Aminotransferase 18 U/L (12-78); Albumin Level 3.9 g/dl (3.5-5.0); Albumin/Globulin Ratio 0.9 (1.1-1.8); Alkaline Phosphatase 116 U/L (38-126); Anion Gap 6.6 mEq/L (5-15); Aspartate Amino Transferase 27 U/L (17-59); Bilirubin,Total 0.7 mg/dl (0.2-1.3); Calcium 9.3 mg/dl (8.4-10.2); Carbon Dioxide 32 mmol/L (22.0-30.0); Globulin 4.3 g/dL (1.3-3.2); Glucose 174 mg/dl (74-100); Total Protein,Serum 8.2 g/dl (6.3-8.2)
--- NOTE | 2019-09-14 14:04 | CT_ITS ---
PROCEDURE: CT CHEST W CON CLINCAL INDICATION: LUNG NODULE Follow-up lung nodule, follow-up lung rads category [address] COMPARISON: CT LUNG SCREENING from 06/12/2019 TECHNIQUE: IV Contrast: 75ml Optiray 350 Axial images obtained with sagittal and coronal reformats. All CT scans at the facility use one or more dose reduction, viz: automated exposure control, ma/kV adjustment per patient size (including targeted exams where dose is matched to indication, i.e. head), or iterative reconstruction technique. FINDINGS: HEART AND MEDIASTINAL STRUCTURES: Prominent atherosclerotic calcifications involve the aorta and great vessels. There is mild ectasia of the ascending thoracic aorta measuring up to 4.3 cm. Severe coronary artery calcifications are present. There is mild dilatation of the left atrium. No mediastinal or hilar mass or adenopathy. There is nonspecific thickening of the distal esophagus. There are few small mediastinal lymph nodes measuring up to 2 by 1 cm in the precarinal region. LUNGS AND PLEURAL SPACES: COPD with centrilobular emphysema and scattered areas of pulmonary fibrosis. Previously noted opacity in the right upper lobe posteriorly is no longer apparent. There is an irregular density in the right upper lobe posteriorly image 41 measuring approximately 10 mm previously measuring approximately 15 mm.. Previously noted irregular opacity in the left lung base posteriorly is not apparent on today's exam. No effusions or infiltrates. There are pulmonary fibrotic changes with superimposed centrilobular and panlobular emphysema. The BONY STRUCTURES: There are old bilateral rib fractures. UPPER ABDOMEN: Atherosclerotic changes with stenosis involving the ostium of the celiac and SMA. The SMA stenosis is greater than 50 percent. It is difficult to estimate the celiac stenosis due to the slice orientation. Cholelithiasis is noted. There are few small lymph nodes in the epigastric region and celiac area ADDITIONAL FINDINGS: No other significant abnormalities. IMPRESSION: 1. COPD with centrilobular and panlobular emphysema with pulmonary fibrosis. Previously noted scattered opacities have improved compared to the previous exam and may have been infectious/inflammatory. There is some scarring in the lung apices. 2. Persistent 10 mm opacity in the right upper lobe irregular in nature. This however is shown some decrease in size and could be inflammatory/infectious with some scarring. Cannot exclude the possibility of neoplasm. Six-month follow-up is suggested. There are some mildly prominent lymph nodes in the mediastinum which are not significantly changed. Follow-up is suggested. 3. 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 4. Nonspecific thickening of the distal esophagus which may be better evaluated with endoscopy or barium swallow 5. Cholelithiasis Dictated by: John Hernandez MD 09/15/2019 10:34 Electronically signed by John Hernandez MD in [place] 09/15/2019 10:34
== END ==
PROVIDERS: PCP Emergency Medicine; Visit Provider Internal Medicine Medical Oncology
DX: R91.1 Solitary pulmonary nodule (principal)
CPT/HCPCS: 36415; 71260; 80053; 85025; Q9967

== ENCOUNTER → 2019-09-21 13:02 | Outpatient (CLI) | payer MEDICARE, MEDICAID, SELFPAY ==
--- NOTE | 2019-09-21 13:06 | CA_ITS ---
APPROVED REPORT EXAM: Comprehensive 2D, Doppler, and color-flow Echocardiogram Assurance Manager: Courtney Latif RVT Ht: 5 ft 8 in Wt: 172lbs BSA: 1.92 BP: 105/63 mmHg Indications: A-FIB,PRE-OP,CAD,CM,COPD,SMOKER,HTN,HLD 2D Dimensions LVOT 2.07 cm (M/F) 1.5-2.5 M-Mode Dimensions RVDd 3.82 cm (0.9-2.6) LVDd 4.87 cm (3.5-5.7) LVDs 3.66 cm (3.5-5.7) IVSd 1.09 cm (0.6-1.1) PWd 0.44 cm (0.6-1.1) EF (Teich) 49.10% FS 24.80% EDV (Teich) 111.20 mL ESV (Teich) 56.60 mL Left Ventricle Left atrium is moderately enlarged, left ventricle is normal size, mild concentric left ventricular hypertrophy, visually estimated ejection fraction approximately 45 to 50%, left ventricle is mildly globally hypokinetic, diastolic parameters are inconclusive. Right Ventricle Right atrium right ventricle moderately enlarged with normal contractility. Aortic Valve Aortic valve is minimally thickened and fibrosed, there is no aortic stenosis, there is mild aortic insufficiency. Mitral Valve Mitral valve leaflets are minimally thickened, there is no mitral stenosis, there is mild mitral regurgitation. Tricuspid Valve Tricuspid valve is minimally thickened, there is mild tricuspid regurgitation, tricuspid regurgitation jet velocity is inadequate for calculation of the right ventricular systolic pressure. Pulmonic Valve Pulmonic valve is poorly visualized. Great Vessels Aortic root is normal size. Pericardium No significant pericardial effusion noted. Conclusion 1. Moderate biatrial enlargement, normal left ventricular size, mild concentric left ventricular hypertrophy, visually estimated ejection fraction 45 to 50%, left ventricle is mildly globally hypokinetic, diastolic parameters are inconclusive. 2. Mild aortic, mild mitral and tricuspid regurgitation. 3. No significant pericardial effusion noted. Electronically signed by : Bradford Avalos, 09/21/2019 20:16:57
== END ==
PROVIDERS: PCP Emergency Medicine; Visit Provider Urology
DX: I25.10 Atherosclerotic heart disease of native coronary artery without angina pectoris (principal); E78.2 Mixed hyperlipidemia; I11.9 Hypertensive heart disease without heart failure; I48.20 Chronic atrial fibrillation, unspecified; I42.9 Cardiomyopathy, unspecified; R06.02 Shortness of breath
CPT/HCPCS: 93306

== ENCOUNTER → 2019-10-12 13:39 | Outpatient (CLI) | payer MEDICARE, MEDICAID, SELFPAY ==
[2019-10-12 14:30] LABS: Chloride 102 mmol/L (98-107); Potassium 3.7 mmoL/L (3.5-5.1); Sodium 139 mmol/L (136-145)
[2019-10-12 14:33] LABS: Anion Gap 6.7 mEq/L (5-15); Blood Urea Nitrogen 16 mg/dl (9-20); Carbon Dioxide 34 mmol/L (22.0-30.0); Estimated Glomerular Filt Rate 96 ml/min (>60); GFR (African American) 116 ML/MIN (>60)
[2019-10-12 14:34] LABS: Calcium 8.7 mg/dl (8.4-10.2); Glucose 112 mg/dl (74-100)
[2019-10-12 14:37] LABS: Basophils # 0.1 K/mm3 (0-0.2); Basophils % 1.2 % (0.1-2.0); Eosinophils # 0.2 K/mm3 (0.0-0.4); Eosinophils % 2.3 % (0.1-12.0); Hematocrit 52.3 % (42.0-52.0); Hemoglobin 16.7 g/dL (14.1-18.0); Lymphocytes # 1.6 K/mm3 (0.7-4.5); Lymphocytes % 18.9 % (10-50); Mean Corpuscular Hemoglobin 34.7 pg (27.0-31.2); Mean Corpuscular Volume 108.3 fl (80-94); Mean Platelet Volume 8.8 fl (7.4-10.4); Monocytes # 0.6 K/mm3 (0.1-1.0); Monocytes % 7.1 % (1.7-9.3); Neutrophils # 5.8 K/mm3 (1.8-7.8); Neutrophils % 70.4 % (37.0-80.0); Platelet Count 474 K/mm3 (142-424); Red Blood Count 4.83 M/mm3 (4.60-6.20); Red Cell Distribution Width 19.6 % (11.5-17.5); White Blood Count 8.3 K/mm3 (4.8-10.8)
[2019-10-12 15:01] LABS: INR 1.32 (0.9-1.1); Prothrombin Time 13.4 seconds (9.4-11.8)
[2019-10-12 20:57] LABS: Coronavirus 19 IgG Antibody Negative (Negative); Coronavirus 19 IgM Antibody Negative (Negative)
== END ==
PROVIDERS: Visit Provider Surgery
DX: Z01.818 Encounter for other preprocedural examination (principal); Z51.81 Encounter for therapeutic drug level monitoring; Z79.01 Long term (current) use of anticoagulants
CPT/HCPCS: 36415; 80048; 85025; 85610; 86328

== ENCOUNTER 2019-10-13 08:09 | Day surgery (SDC) | payer MEDICARE, MEDICAID, SELFPAY ==
[2019-10-12 12:13] VITALS: BMI 28.1
[2019-10-13 08:24] VITALS: BP 134/67; PULSE 92; RESP 18; TEMP 36.6; O2SAT 94
--- NOTE | 2019-10-13 08:48 | P.PN_ITS ---
[facility] Anesthesia Checklist - Patient Identification Patient Identification: Arm Band - Structural Data Admitted From: Long-term Nursing Facility Planned Operative Procedure/s: colonoscopy Consent for Planned Operative Procedure(s) Verified: Yes Verified Documents: Surgical Consent, History and Physical - NPO Status Verified Time NPO: 00:00 - Additional verifications Anesthesia Reactions: No Hx Blood Transfusions: No Blood Transfusion Reaction: No - Airway Assessment C-Spine Mobility Assessed: Yes (mp2) TMJ Mobility Assessed: Yes Dentition: Edentulous - Neurological Assessment Level of Consciousness: Awake, Alert - Anesthesia Plan Anesthesia Risk discussed: Yes Anesthesia Plan: Verified ASA Class: III Anesthesia Type: MAC [facility] History I have reviewed the patient's past medical history: Yes Medical History: Reports:: Anxiety, Arrhythmia (Afib), Atherosclerotic Heart Disease, Atrial Fibrillation, Chronic Obstructive Pulmonary Disease (COPD), Coronary Artery Disease, Depression, Hyperlipidemia, Hypertension, Myocardial Infarction, Peripheral Artery Disease, Ulcer Denies:: Cancer, Diabetes Mellitus Type 1, Diabetes Mellitus Type 2, Heart Murmur, Internal Pacemaker, MRSA, Seizures *Have you ever received a pneumonia vaccine?: Yes *Have you received a flu vaccine this season?: Yes Other Medical History: Reports: Arthritis, Cataracts, Liver Disease, Other. Denies: Blood Transfusion Reaction Anesthesia experience/problems:: nac Laterality Cases: Left: Arthroscopy Hip, Total Hip Replacement, Other Other Surgeries: Yes: Cardiac Catheterization, Colonoscopy. No: Pacemaker Amputation: Yes (2nd toe on right foot ) Fractures: No - *Social History Educational Level: Completed High School Smoking Status: Current every day smoker Tobacco Type: cigarettes # Packs/Day (cigarettes): 1 Alcohol Intake: never Alcohol Intake Frequency:: other Substance Use Type: denies use *Occupational Status:: retired Housing: fdc Household Members: other *Travel in the last 8 weeks: None - Psychiatric History Pschychiatric History:: Reports:: Anxiety, Depression Family Hx:: Asthma, Cancer, Heart Attack
[2019-10-13 08:50] VITALS: O2SAT 97
[2019-10-13 09:33] VITALS: BP 84/49; PULSE 66; RESP 18; TEMP 36.3; O2SAT 93
--- NOTE | 2019-10-13 09:35 | HMH.SCOPE ---
- Procedure: Date: 10/13/19 Procedure Performed:: Colonoscopy with polypectomy Indications:: Patient presents for colonoscopy. He is a 69-year-old male jail patient referred by Cheyanne Ashraf essentially for initial screening colonoscopy. He is a poor historian. He has a history of coronary artery disease, cardiomyopathy, chronic atrial fibrillation on chronic warfarin anticoagulation therapy, and reported alcoholic cirrhosis as well as hypertension. He denies any complaints. He does have a history of polycythemia with markedly elevated hemoglobin as well as platelet count. After I had seen him initially as a consultation I had him undergo cardiac risk assessment. He was deemed an acceptable risk and it was recommended he discontinue his Coumadin 5 days prior to any colonoscopy. Performing Provider:: Ignacio Roca MD Referring Provider:: Cheyanne Ashraf Sedation:: Propofol Procedure:: Patient was taken to endoscopy procedure room. He was positioned in a lateral decubitus position. Adequate intravenous sedation was achieved with titration of propofol. Variable stiffness Olympus colonoscope was inserted via the anus. Was advanced to the cecum. He did have some floppiness of the sigmoid colon which initially made advancement to the cecum somewhat difficult. There was a significant amount of particulate stool within the cecum but ultimately fair visualization was achieved with thorough irrigation and suctioning. Ultimately ileocecal valve and appendiceal orifice were identified. There is a subtle mucosal irregularity adjacent to the ileocecal valve which was possibly an early polyp and this was removed with cold biopsy forceps and sent as possible cecal polyp. Colonoscope was withdrawn through the remainder colon with thorough irrigation and suctioning performed to allow for visualization. There were a few sigmoid diverticuli. Retroflexion within the rectum revealed no evidence of any pathologic internal hemorrhoids. Colonoscope was withdrawn. Findings:: Possible early polyp in the cecum Rare sigmoid diverticuli Recommendations:: Likely repeat colonoscopy in 5 to 10 years Complications:: None immediately apparent Estimated blood obtained (mL): 1
[2019-10-13 09:45] VITALS: BP 100/59; PULSE 71; RESP 16; O2SAT 93
[2019-10-13 10:00] VITALS: BP 108/70; PULSE 58; RESP 16; O2SAT 91
[2019-10-13 10:13] VITALS: BP 143/64; PULSE 68; RESP 16; O2SAT 97
== END 2019-10-13 10:13 | disposition home health service (06) ==
PROVIDERS: PCP Emergency Medicine; Visit Provider Surgery
PROC: 0DJD8ZZ Inspection of Lower Intestinal Tract, Via Natural or Artificial Opening Endoscopic (ICD-10-PCS; CPT 45380; principal; 2019-10-13 09:00)
DX: Z12.11 Encounter for screening for malignant neoplasm of colon (principal); K57.30 Diverticulosis of large intestine without perforation or abscess without bleeding; K63.89 Other specified diseases of intestine
CPT/HCPCS: 45380; 88305

== ENCOUNTER → 2019-11-04 12:55 | Outpatient (CLI) | payer MEDICARE, MEDICAID, SELFPAY ==
--- NOTE | 2019-11-04 12:59 | FL_ITS ---
PROCEDURE: FL BARIUM SWALLOW MODIFIED CLINICAL INDICATION: R/O ASPIRATION,CHRONIC LUNG COMLICATIONS COMPARISON: No exams were available for comparison TECHNIQUE: Patient administered varying consistencies of barium contrast, while viewed in lateral position under real-time fluoroscopy with cine recording. FLUOROSCOPY TIME:3 minutes and 49 seconds The study was performed in conjunction with speech pathologist. Please see that report & recommendations. FINDINGS: Patient was given varying consistencies of barium. There was premature spillage with residue noted. No aspiration or penetration. There was mild delay in initiation of the swallowing mechanism.. IMPRESSION: There was no evidence of aspiration or penetration. There was mild spillage with delayed swallow reflex and mild residue Please see speech pathologist report and recommendations. Dictated by: John Hernandez MD 11/05/2019 14:18 Electronically signed by John Hernandez MD in [place] 11/05/2019 14:18
--- NOTE | 2019-11-04 14:14 | HMH.SLMBS2 ---
Speech & Language Evaluation Speech/Language Mod Barium Swallow Start: 11/04/19 13:51 Freq: once Status: Complete Protocol: Document 11/04/19 13:54 NATALI (Rec: 11/04/19 14:14 NATALI [id number]) General Information General Current Food Consistancy Mechanical Soft,Thin Liquids Dentition Edentulous Comment: Mr. Salter does not wear his dentures during mealtimes Oxygen Status Room Air Facial Symmetry Symmetrical Patient Orientation Person,Place Ability to Follow Directions Good Communication Ability No Impairment MBS Recommendations Diet Dietary Recommendations Mechanical Soft,Thin Liquids Mod Barium Swallow Impressions Summary and Impressions Oral Phase Impression Minimal Impairment Oral Phase Summary Mr. Salter was given the following consistencies: thins via spoon, straw, and open cup, pudding, pureed, mechanical soft, regular, mixed, and pill with thin wash . Mr. Salter exhibited longer mastication times due to lack of dentition. Pharyngeal Phase Impression Mild Impairment Pharyngeal Phase Summary It was noted during evaluation that Mr. Salter exhibited premature spillage over the back of the tongue with food consistencies. He also had vallecular residue with pudding, pureed, mechanical soft, and regular consistencies however it was cleared with a thin wash. Speech/Language MBS Assessment/Goals/Plan Assessment Date of Evaluation: 11/04/19 Evaluation Type Initial Certification Assessment/Problems Rule out aspiration Does Patient Qualify for Service No Qualify/Failure Comment RECYCLING SPECIALIST at [facility] will determine need for therapy. Recommendations PHYSICIAN CERTIFICATION: The specified therapy services are required, authorized, and reviewed every 30 days. Diet Recommendations Mechanical Soft Liquid Type Recommendations Normal/Thin SL Swallow Guidelines Alt bite w/sip thru meal, Standard Aspiration Prec. Dysphagia Swallow Precautions/Strategies Sitting Upright (90 deg),Small Bites and Sips,Alternate Liquids/Solids Plan Pt/Guardian verbally ack understanding Yes of dx/prognosis/goals G -co
== END ==
PROVIDERS: PCP Emergency Medicine; Visit Provider Emergency Medicine
DX: R13.10 Dysphagia, unspecified (principal)
CPT/HCPCS: 70371; 92611

== ENCOUNTER 2019-11-12 08:02 | Outpatient (RCR) | payer MEDICARE, MEDICAID, SELFPAY | END 2020-01-21 13:43 | disposition home or self-care (01) | LOC: PT 08:02 | DX: J84.10 Pulmonary fibrosis, unspecified (principal) | CPT/HCPCS: G0237; G0238 ==

== ENCOUNTER → 2020-02-05 17:35 | Outpatient (CLI) | payer MEDICARE, MEDICAID, SELFPAY ==
[2020-02-05 17:57] LABS: INR 1.39 (0.9-1.1)
== END ==
PROVIDERS: Visit Provider Emergency Medicine
DX: R79.1 Abnormal coagulation profile (principal)
CPT/HCPCS: 85610

== ENCOUNTER → 2020-05-20 16:09 | Outpatient (CLI) | payer MEDICARE, MEDICAID, SELFPAY ==
[2020-05-20 17:04] LABS: Prothrombin Time 50.8 seconds (9.4-11.8)
[2020-05-20 17:05] LABS: INR 5.33 (0.9-1.1)
== END ==
PROVIDERS: Visit Provider Emergency Medicine
DX: Z51.81 Encounter for therapeutic drug level monitoring (principal); Z79.01 Long term (current) use of anticoagulants
CPT/HCPCS: 85610

== ENCOUNTER → 2020-06-09 13:29 | Outpatient (CLI) | payer MEDICARE, MEDICAID, SELFPAY ==
--- NOTE | 2020-06-09 13:30 | CT_ITS ---
PROCEDURE: CT CHEST WO CON CLINICAL INDICATION: Pulmonary nodule Follow-up pulmonary nodule COMPARISON: CT CT LUNG SCREENING from 06/12/[address] CHEST W CON from 09/14/2019 TECHNIQUE: Axial images obtained with sagittal and coronal reformats. All CT scans at the facility use one or more dose reduction, viz: automated exposure control, ma/kV adjustment per patient size (including targeted exams where dose is matched to indication, i.e. head), or iterative reconstruction technique. FINDINGS: Atherosclerotic calcification involves the aorta and great vessels with dilatation the thoracic aorta measuring up to 4.4 cm in transverse dimension in the ascending aortic region previously measuring approximately 4.2 cm. There is mild mediastinal adenopathy. There is a right precarinal node at 2.4 x 1.2 cm previously 2 x 1.0 cm. There is extensive coronary artery calcification and there is cardiomegaly. Centrilobular emphysema with scattered areas of fibrosis and scarring is once again noted. There are trace bilateral pleural effusions. The previously noted parenchymal opacity in the right lower lobe is once again noted measuring approximately 1 cm not significantly changed. There is a new parenchymal opacity in the left upper lobe which is somewhat irregular in nature series 3, image 29. This area measures approximately 1 cm and has developed since the previous exam and could be due to an area of atelectatic change or scarring. Developing neoplastic nodule is also consideration. Therefore, continued follow-up is suggested. Upper abdominal images show cholelithiasis and small hiatal hernia. There are degenerative changes in the thoracic spine and there are old bilateral rib fractures. IMPRESSION: 1. Mild aneurysmal dilatation of the ascending aorta at 4.4 cm. 2. Mild mediastinal adenopathy with slight increase in size of the right precarinal lymph node. 3. Stable right upper lobe nodule.. 4. New 1 cm irregular nodular opacity in the left upper lobe possibly due to an area of scarring or atelectasis. Cannot exclude developing neoplastic nodule. Consider 3 month follow-up in light that this is a new nodule. Small bilateral pleural effusions with centrilobular emphysema and pulmonary fibrosis is noted. 5. Cholelithiasis Dictated by: John Hernandez MD 06/10/2020 13:49 John Hernandez MD in [place] 06/10/2020 13:49
== END ==
PROVIDERS: PCP Emergency Medicine; Visit Provider Internal Medicine Pulmonary Disease
DX: R91.1 Solitary pulmonary nodule (principal)
CPT/HCPCS: 71250

== ENCOUNTER → 2020-06-11 09:28 | Outpatient (CLI) | payer MEDICARE, MEDICAID, SELFPAY ==
[2020-06-11 12:13] LABS: INR 2.41 (0.9-1.1); Prothrombin Time 26.6 seconds (9.4-11.8)
== END ==
PROVIDERS: Visit Provider Emergency Medicine
DX: Z51.81 Encounter for therapeutic drug level monitoring (principal); Z79.01 Long term (current) use of anticoagulants
CPT/HCPCS: 85610

== ENCOUNTER → 2020-06-18 16:09 | Outpatient (REF) | payer MEDICARE, MEDICAID, SELFPAY ==
[2020-06-18 16:53] LABS: INR 1.94 (0.9-1.1); Prothrombin Time 21.8 seconds (9.4-11.8)
== END ==
LOC: LAB.DROPOF 16:09
PROVIDERS: Visit Provider Emergency Medicine
DX: Z51.81 Encounter for therapeutic drug level monitoring (principal); Z79.01 Long term (current) use of anticoagulants
CPT/HCPCS: 85610

== ENCOUNTER → 2020-12-18 19:37 | Outpatient (CLI) | payer MEDICARE, MEDICAID, SELFPAY ==
[2020-12-18 20:07] LABS: Prothrombin Time 28.6 seconds (10.1-12.5)
== END ==
PROVIDERS: PCP Emergency Medicine; Visit Provider Emergency Medicine
DX: Z51.81 Encounter for therapeutic drug level monitoring (principal); Z79.01 Long term (current) use of anticoagulants
CPT/HCPCS: 85610

== ENCOUNTER → 2021-03-30 14:03 | Outpatient (CLI) | payer MEDICARE, MEDICAID, SELFPAY ==
--- NOTE | 2021-03-30 14:03 | CT_ITS ---
PROCEDURE: CT CHEST WO CON CLINICAL INDICATION: 6-month follow-up CT chest COMPARISON: CT CT CHEST W CON from 09/14/[address] CHEST WO CON from 06/09/2020 TECHNIQUE: Axial images obtained with sagittal and coronal reformats. All CT scans at the facility use one or more dose reduction, viz: automated exposure control, ma/kV adjustment per patient size (including targeted exams where dose is matched to indication, i.e. head), or iterative reconstruction technique. FINDINGS: HEART AND MEDIASTINAL STRUCTURES: Diffuse atherosclerotic calcification the thoracic aorta with mild dilatation of the ascending aorta at 4.3 cm. There is extensive coronary artery calcification. Normal heart size. LUNGS AND PLEURAL SPACES: COPD with panlobular and paraseptal emphysematous changes and pulmonary fibrosis once again noted. Are there are scattered areas of scarring. Pleural thickening is present in the right posterior medial hemithorax. Small bilateral pleural effusions have resolved. There is thickening of the left diaphragmatic elier and left hemidiaphragm medially. This is of questionable clinical significance. There is mild thickening of the right diaphragmatic elier as well. Upper abdomen: Cholelithiasis. Collateral vessels are present in the lesser curvature of the stomach region and peripancreatic area. There is mild left-sided hydronephrosis. Bony structures: Old bilateral rib fractures. ADDITIONAL FINDINGS: Subcutaneous fluid collection is noted in the infra xiphoid region at 2.4 by 1.2 cm etiology indeterminate stable since 09/14/2019. IMPRESSION: Stable CT appearance of the chest with panlobular and paraseptal emphysema with pulmonary fibrosis and scattered areas of scarring. No change in the bilateral pulmonary nodules. Bilateral pleural effusions have resolved with some mild pleural thickening noted in the right posterior medial hemithorax. This could be related to some loculated effusion. Continued follow-up suggested to confirm stability. Other nonacute findings as described above including cholelithiasis Dictated by: John Hernandez MD 03/31/2021 12:09 John Hernandez MD in [place] 03/31/2021 12:09
== END ==
PROVIDERS: PCP Emergency Medicine; Visit Provider Internal Medicine Pulmonary Disease
DX: R91.8 Other nonspecific abnormal finding of lung field (principal)
CPT/HCPCS: 71250

== ENCOUNTER → 2021-09-13 10:38 | Outpatient (CLI) | payer MEDICARE, MEDICAID, SELFPAY ==
[2021-09-13 11:16] LABS: Blood Urea Nitrogen 18 mg/dl (9-20); Estimated Glomerular Filt Rate 83 ml/min (>60); GFR (African American) 101 ML/MIN (>60)
--- NOTE | 2021-09-13 11:23 | CT_ITS ---
FINAL REPORT TECHNIQUE: Axial CT images of the abdomen and pelvis were obtained before and after the administration of IV contrast. Oral contrast was administered.This study was performed with techniques to keep radiation doses as low as reasonably achievable (ALARA). Individualized dose reduction techniques using automated exposure control or adjustment of mA and/or kV according to the patient''s size were employed. CLINICAL HISTORY: WEIGHT LOSS,ANEMIA COMPARISON: March 30, [address] FINDINGS: Abdomen: The heart is normal in size. The liver has an unremarkable appearance, without evidence of mass or biliary duct dilatation. The spleen is unremarkable. No adrenal masses present. The pancreas has an unremarkable appearance. There is a 16 mm mass in the upper pole of the left kidney consistent with a mildly complicated cyst. There are several other small bilateral simple cysts. There is mild left hydronephrosis without hydroureter. There is mild right renal scarring. The aorta is normal in caliber. There is no free fluid or adenopathy. Precontrast images demonstrate gallstones in the gallbladder. There is no renal stone. There are moderate vascular calcifications. There is left hip arthroplasty causing streak artifact. Pelvis: The appendix is normal. The urinary bladder is unremarkable. No inflammatory process is seen. There is no evidence of mass or adenopathy. There is no evidence of bowel obstruction. There is severe stenosis of the left external iliac artery. IMPRESSION: 16 mm mildly complicated cyst in the left kidney with several other small bilateral simple renal cysts. Mild left hydronephrosis without hydroureter. This could represent left UPJ stenosis. Cholelithiasis. 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 Reviewed, Interpreted and Dictated by Ignacio Chavez III, MD Transcribed by Ronal Celestin Authenticated and . [facility]
--- NOTE | 2021-09-13 11:23 | CT_ITS ---
FINAL REPORT TECHNIQUE: Axial images through the chest were performed by computed tomography before and after the administration of IV contrast. This study was performed with techniques to keep radiation doses as low as reasonably achievable, (ALARA). Individualized dose reduction techniques using automated exposure control or adjustment of mA and/or kV according to the patient's size were employed. CLINICAL HISTORY: WEIGHT LOSS,ANEMIA COMPARISON: March 30, 2021 FINDINGS: There is no axillary adenopathy. There is no hilar or mediastinal adenopathy. The heart size is normal. There is aneurysmal dilatation of the ascending aorta measuring 4.3 cm which is stable. There is no pericardial or pleural effusion. On the lung window images, there is moderate to severe changes of emphysema with mild scarring/fibrosis which is stable. There is a 6 mm nodular opacity in the posterior right upper lobe which is stable. There is mild right posterior pleural thickening which is stable. IMPRESSION: No acute process. Overall stable exam. Reviewed, Interpreted and Dictated by Ignacio Chavez III, MD Transcribed by Shana Cisneros Authenticated and [facility]
== END ==
PROVIDERS: PCP Emergency Medicine; Visit Provider Internal Medicine Medical Oncology
DX: R63.4 Abnormal weight loss (principal); D64.9 Anemia, unspecified
CPT/HCPCS: 36415; 71270; 74178; 82565; 84520; Q9967

== ENCOUNTER → 2022-02-25 16:48 | Outpatient (CLI) | payer MEDICARE, MEDICAID, SELFPAY | PROVIDERS: PCP Emergency Medicine; Visit Provider Emergency Medicine | DX: D64.9 Anemia, unspecified (principal) ==

== ENCOUNTER → 2022-03-19 06:07 | Outpatient (CLI) | payer MEDICARE, MEDICAID, SELFPAY | PROVIDERS: Visit Provider Nurse Practitioner Family | DX: L97.529 Non-pressure chronic ulcer of other part of left foot with unspecified severity (principal) ==

== ENCOUNTER → 2022-03-19 12:58 | Outpatient (CLI) | payer MEDICARE, MEDICAID, SELFPAY ==
--- NOTE | 2022-03-19 13:01 | CT_ITS ---
FINAL REPORT TECHNIQUE: Axial images through the chest were performed by computed tomography before and after the administration of IV contrast. This study was performed with techniques to keep radiation doses as low as reasonably achievable, (ALARA). Individualized dose reduction techniques using automated exposure control or adjustment of mA and/or kV according to the patient's size were employed. CLINICAL HISTORY: thoracic aortic aneursym COMPARISON: September 13, 2021 FINDINGS: There is no axillary adenopathy. There is no hilar or mediastinal adenopathy. The heart size is normal. There is no pericardial or pleural effusion. Limited images of the upper abdomen demonstrate the ascending aortic aneurysm measuring 4.5 cm, stable. No dissection is identified. There are gallstones within the gallbladder. There is a 12 mm nodule in the lateral right upper lobe which previously measured 6 mm. This is worrisome for neoplasm but still could be inflammatory. There are severe changes of emphysema with moderate pulmonary scarring. There are moderate vascular calcifications. There is a small right pleural effusion. IMPRESSION: Lateral right upper lobe nodule, increased in size. Worrisome for neoplasm but still could be inflammatory. Recommend PET-CT for further evaluation. 4.5 cm ascending aortic aneurysm, stable. Reviewed, Interpreted and Dictated by Ignacio Chavez III, MD Transcribed by Shana Cisneros Authenticated and [facility]
--- NOTE | 2022-03-19 15:59 | XR_ITS ---
PROCEDURE INFORMATION: Exam: XR Left Foot Complete; Alignment Exam date and time: 03/19/2022 4:05 PM Age: 71 years old Clinical indication: Other: Rule out osteomyelitis TECHNIQUE: Imaging protocol: Radiologic exam of the Left foot. Views: 3 or more views. COMPARISON: CR [id number] XR foot LT min 3V 03/25/2018 1:43 PM FINDINGS: Bones/joints: Status post amputation of the 1st toe of the level of the MTP joint. There is redemonstration of flattening of the 2nd metatarsal head. There is an age-indeterminate likely acute fracture along the 3rd digit's proximal phalanx on a background of diffuse osteopenia. Soft tissues: Diffuse soft tissue swelling about the forefoot. IMPRESSION: There is an age-indeterminate likely acute fracture along the 3rd digit's proximal phalanx on a background of diffuse osteopenia.
--- NOTE | 2022-03-19 15:59 | XR_ITS ---
PROCEDURE INFORMATION: Exam: XR Right Foot Complete; Alignment Exam date and time: 03/19/2022 4:05 PM Age: 71 years old Clinical indication: Other: Rule out osteomyelitis TECHNIQUE: Imaging protocol: Radiologic exam of the Right foot. Views: 3 or more views. COMPARISON: No relevant prior studies available. FINDINGS: Bones/joints: Diffuse osteopenia. Status post amputation of the 2nd digit distal phalanx. Subtle osteopenia along the head of the 5th metatarsal. Advanced degenerative changes about the midfoot. No visible fracture Soft tissues: Normal. IMPRESSION: Subtle osteopenia along the head of the 5th metatarsal can represent osteomyelitis in the appropriate clinical context.
[2022-03-19 16:42] LABS: Basophils # 0.1 K/mm3 (0-0.2); Eosinophils # 0.3 K/mm3 (0.0-0.4); Eosinophils % 4.4 % (0.1-12.0); Hematocrit 35.1 % (42.0-52.0); Hemoglobin 10.4 g/dL (14.1-18.0); Lymphocytes # 0.9 K/mm3 (0.7-4.5); Lymphocytes % 13.2 % (10-50); Mean Corpuscular HGB Conc 29.8 g/dL (31.8-35.4); Mean Corpuscular Hemoglobin 36.4 pg (27.0-31.2); Mean Corpuscular Volume 122.3 fl (80-94); Mean Platelet Volume 9.6 fl (7.4-10.4); Monocytes # 0.4 K/mm3 (0.1-1.0); Monocytes % 6.5 % (1.7-9.3); Neutrophils % 74.9 % (37.0-80.0); Platelet Count 693 K/mm3 (142-424); Red Blood Count 2.87 M/mm3 (4.60-6.20); Red Cell Distribution Width 17.1 % (11.5-17.5); White Blood Count 6.7 K/mm3 (4.8-10.8)
[2022-03-19 17:05] LABS: Alanine Aminotransferase 13 U/L (12-78); Albumin Level 3.3 g/dl (3.5-5.0); Albumin/Globulin Ratio 0.8 (1.1-1.8); Alkaline Phosphatase 217 U/L (38-126); Anion Gap 9.4 mEq/L (5-15); Aspartate Amino Transferase 22 U/L (17-59); Bilirubin,Total 0.5 mg/dl (0.2-1.3); Blood Urea Nitrogen 14 mg/dl (9-20); Calcium 8.6 mg/dl (8.4-10.2); Carbon Dioxide 31 mmol/L (22.0-30.0); Chloride 103 mmol/L (98-107); Estimated Glomerular Filt Rate 83 ml/min (>60); GFR (African American) 101 ML/MIN (>60); Globulin 4.2 g/dL (1.3-3.2); Glucose 93 mg/dl (74-100); Potassium 3.4 mmoL/L (3.5-5.1); Sodium 140 mmol/L (136-145); Total Protein,Serum 7.5 g/dl (6.3-8.2)
[2022-03-19 17:10] LABS: C-Reactive Protein 97.2 mg/L (0-4)
[2022-03-19 19:30] LABS: Erythrocyte Sedimentation Rate > 140 mm/hr (0-20)
== END ==
PROVIDERS: Nurse Practitioner Family; PCP Emergency Medicine; Visit Provider Physician Assistant
DX: I11.9 Hypertensive heart disease without heart failure (principal); I25.10 Atherosclerotic heart disease of native coronary artery without angina pectoris; L97.529 Non-pressure chronic ulcer of other part of left foot with unspecified severity; M1A.49X0 Other secondary chronic gout, multiple sites, without tophus (tophi); I71.20 Thoracic aortic aneurysm, without rupture, unspecified
CPT/HCPCS: 36415; 71270; 73630; 80053; 82565; 84520; 85025; 85651; 86140; 87070; 87077; 87186; 87205; Q9967

== ENCOUNTER → 2022-03-27 13:02 | Outpatient (CLI) | payer MEDICARE, MEDICAID, SELFPAY ==
--- NOTE | 2022-03-27 13:05 | US_ITS ---
FINAL REPORT CLINICAL HISTORY: OSTEOMYLITIS,SMOKER,HTN,PRIOR LT GREAT TOE AMPUTATION,PT HAS MULTIPLE SKIN LESIONS ON FEET FINDINGS: ANKLE-BRACHIAL PRESSURE INDICES Pressure indices are as follows: RIGHT LOWER EXTREMITY: Ankle-brachial pressure index: 1.1 Comments: Normal LEFT LOWER EXTREMITY: Ankle-brachial pressure index: 1.1 Comments: Normal CONCLUSION: No evidence of significant obstructive peripheral vascular disease of the lower extremities Reviewed, Interpreted and Dictated by Ignacio Chavez III, MD Transcribed by Shana Cisneros Authenticated and [facility]
== END ==
PROVIDERS: Visit Provider Nurse Practitioner Family
DX: R09.89 Other specified symptoms and signs involving the circulatory and respiratory systems (principal)
CPT/HCPCS: 93923

== ENCOUNTER → 2022-03-30 13:03 | Outpatient (CLI) | payer MEDICARE, MEDICAID, SELFPAY ==
--- NOTE | 2022-03-30 13:05 | CT_ITS ---
FINAL REPORT TECHNIQUE: Thin section axial CT images with coronal and sagittal reformats were performed. 3D reconstruction images were also obtained and reviewed. This study was performed with techniques to keep radiation doses as low as reasonably achievable (ALARA). Individualized dose reduction techniques using automated exposure control or adjustment of mA and/or kV according to the patient''s size were employed. CLINICAL HISTORY: R/O Osteomyelitis FINDINGS: There are no fractures. There are no masses or fluid collections. There are no soft tissue abnormalities. Forefoot and toes show significant motion artifact which decreases exam sensitivity. There has been amputation of the 2nd digit at the PIP joint. There are mild degenerative changes. Bones are osteopenic. There is a lytic area at the posterior calcaneus, partially visualized which may represent cyst. IMPRESSION: No definite evidence of osteomyelitis. If indicated, consider MRI for further evaluation. Reviewed, Interpreted and Dictated by Ignacio Chavez III, MD Transcribed by Chen Pittman Authenticated and . [facility]
--- NOTE | 2022-03-30 13:05 | CT_ITS ---
FINAL REPORT TECHNIQUE: Thin section axial CT images with coronal and sagittal reformats were performed. 3D images were also obtained. This study was performed with techniques to keep radiation doses as low as reasonably achievable (ALARA). Individualized dose reduction techniques using automated exposure control or adjustment of mA and/or kV according to the patient's size were employed. CLINICAL HISTORY: R/O Osteomyelitis FINDINGS: CT LOWER EXTREMITY W/O CONTRAST: LEFT FOOT There is motion on many of the images which decreases sensitivity of the exam. The bones are osteopenic. There are mild degenerative changes. There are 2nd through 5th hammertoes. There is amputation of the great toe at the 1st MTP. There is erosion of the 2nd middle phalanx and the distal aspect of the 2nd proximal phalanx which is worrisome for osteomyelitis. There is also erosion of the 3rd proximal and mid phalanges worrisome for osteomyelitis. IMPRESSION: Findings worrisome for osteomyelitis of the 2nd and 3rd digits. Reviewed, Interpreted and Dictated by Ignacio Chavez III, MD Transcribed by Shana Cisneros Authenticated and [facility]
== END ==
PROVIDERS: PCP Emergency Medicine; Visit Provider Podiatrist
DX: L03.032 Cellulitis of left toe (principal); L97.529 Non-pressure chronic ulcer of other part of left foot with unspecified severity; M86.172 Other acute osteomyelitis, left ankle and foot; M86.171 Other acute osteomyelitis, right ankle and foot
CPT/HCPCS: 73700

== ENCOUNTER → 2022-04-02 09:48 | Outpatient (CLI) | payer MEDICARE, MEDICAID, SELFPAY ==
--- NOTE | 2022-04-02 10:02 | ECG_ITS ---
APPROVED REPORT Exam: Resting ECG HR:80 bpm ECG Measurements Heart Rate 80 AXES QRSd 168 QRS 114 QT 418 T 51 QTc 453 Conclusion ATRIAL FIBRILLATION RIGHT AXIS DEVIATION [QRS AXIS > 100] RIGHT BUNDLE BRANCH BLOCK [120+ ms QRS DURATION, UPRIGHT V1, 40+ ms S IN I/aVL/V4/V5/V6] ABNORMAL ECG UNCONFIRMED REPORT Electronically signed by : João Parekh MD 04/02/2022 12:14:28
--- NOTE | 2022-04-02 10:32 | XR_ITS ---
FINAL REPORT CLINICAL HISTORY: smoker COMPARISON: December 08, 2018 FINDINGS: Two views of the chest were obtained. The heart size and pulmonary vascularity are within normal limits. The mediastinum is normal. There is moderate scarring/fibrosis. There is no pneumothorax. The bony thorax is intact. IMPRESSION: Moderate scarring/fibrosis appears somewhat worse. Reviewed, Interpreted and Dictated by Ignacio Chavez III, MD Transcribed by Shana Cisneros Authenticated and [facility]
[2022-04-02 10:52] LABS: Basophils % 0.6 % (0.1-2.0); Eosinophils # 0.2 K/mm3 (0.0-0.4); Eosinophils % 2.6 % (0.1-12.0); Hematocrit 34.3 % (42.0-52.0); Hemoglobin 10.6 g/dL (14.1-18.0); Lymphocytes # 0.8 K/mm3 (0.7-4.5); Lymphocytes % 13.1 % (10-50); Mean Corpuscular HGB Conc 30.9 g/dL (31.8-35.4); Mean Corpuscular Hemoglobin 36.7 pg (27.0-31.2); Mean Platelet Volume 9.9 fl (7.4-10.4); Monocytes # 0.4 K/mm3 (0.1-1.0); Monocytes % 7.1 % (1.7-9.3); Neutrophils # 4.6 K/mm3 (1.8-7.8); Neutrophils % 76.6 % (37.0-80.0); Platelet Count 888 K/mm3 (142-424); Red Blood Count 2.88 M/mm3 (4.60-6.20); Red Cell Distribution Width 17.5 % (11.5-17.5); White Blood Count 6.1 K/mm3 (4.8-10.8)
[2022-04-02 11:12] LABS: Hemoglobin A1C 5.4 % (4.0-6.0)
[2022-04-02 11:14] LABS: Erythrocyte Sedimentation Rate 131 mm/hr (0-20)
[2022-04-02 12:32] LABS: Chloride 103 mmol/L (98-107); Sodium 141 mmol/L (136-145)
[2022-04-02 12:35] LABS: Alanine Aminotransferase 8 U/L (12-78); Albumin Level 2.9 g/dl (3.5-5.0); Albumin/Globulin Ratio 0.7 (1.1-1.8); Alkaline Phosphatase 162 U/L (38-126); Aspartate Amino Transferase 21 U/L (17-59); Bilirubin,Total 0.5 mg/dl (0.2-1.3); Blood Urea Nitrogen 14 mg/dl (9-20); Carbon Dioxide 34 mmol/L (22.0-30.0); Estimated Glomerular Filt Rate 83 ml/min (>60); GFR (African American) 101 ML/MIN (>60); Globulin 4.1 g/dL (1.3-3.2)
[2022-04-02 12:36] LABS: Calcium 8.7 mg/dl (8.4-10.2); Glucose 82 mg/dl (74-100)
[2022-04-02 12:42] LABS: C-Reactive Protein 56.8 mg/L (0-4)
== END ==
PROVIDERS: PCP Emergency Medicine; Visit Provider Nurse Practitioner Family
DX: R73.09 Other abnormal glucose; M1A.49X0 Other secondary chronic gout, multiple sites, without tophus (tophi); Z01.818 Encounter for other preprocedural examination; L03.032 Cellulitis of left toe; M86.172 Other acute osteomyelitis, left ankle and foot
CPT/HCPCS: 36415; 71046; 80053; 83036; 85025; 85651; 86140; 93005

== ENCOUNTER → 2022-04-12 07:10 | Outpatient (CLI) | payer MEDICARE, MEDICAID, SELFPAY ==
--- NOTE | 2022-04-12 07:11 | NM_ITS ---
APPROVED REPORT Exam: Nuclear Stress Test Indication: CAD, HTN, HYPERLIPIDEMIA, TOB USE, SOB, PALPITATIONS Patient Location: Outpatient Stress Tech: Tamiko Silva AL Tech:CELENA Pierce RT (R)(N)(M) Ht: 6 ft 0 in Wt: 185 lbs HR: 89 bpm BP: 136/79 mmHg BSA: 2.06 m2 TID: 0.95 History: CAD, HTN, HYPERLIPIDEMIA, TOB USE, SOB, PALPITATIONS PATIENT COULD NOT LAY PRONE Procedure: Patient received a 0.4 mg of intravenous Lexiscan, resting heart rate 89 bpm, resting blood pressure 136/79 mmHg, with Lexiscan maximum heart rate achived was 92 bpm which is Less than 85 % of the maximum predicted heart rate and blood pressure was 159/81 mmHg. With Lexiscan, patient denied any complaint of chest pain. Electrocardiogram Resting electrocardiogram shows atrial fibrillation right bundle branch block, with Lexiscan less than 1.[address] segment depression noted from the baseline EKG. The EKG portion of the Lexiscan is nondiagnostic. Cardiac Stress and Resting SPECT Images: Cardiac Stress and Resting SPECT images were obtained using technetium 99m Myoview 31.3 mCi stress and 10.23 mCi at rest. Gated SPECT analysis of segmental wall motion and calculation of the ejection fraction also done. Cardiac stress and resting SPECT images show reversible ischemia involving the apex and anteroseptal wall, computer derived ejection fraction is 39% with no regional wall motion abnormality, right ventricle is mildly enlarged with normal contractility. Conclusion: 1. The EKG portion of the Lexiscan is nondiagnostic. 2. Scintigraphic evidence of reversible ischemia involving the apex and anteroseptal wall, computer derived ejection fraction 39% with no regional wall motion abnormality, right ventricle is mildly enlarged with normal contractility. 3. Abnormal Lexiscan Myoview study. Electronically signed by : Bradford Avalos MD 04/13/2022 10:13:10
--- NOTE | 2022-04-12 07:32 | CA_ITS ---
APPROVED REPORT EXAM: Comprehensive 2D, Doppler, and color-flow Echocardiogram Methods And Procedures Analyst: Annalise Salguero, HAO, RVS Ht: 5 ft 10 in Wt: 175lbs BSA: 1.97 BP: 104/64 mmHg Rhythm: Atrial Fibrillation Indications: Afib, SOA, CM, Pre-op clearance, CAD, COPD 2D Dimensions LVOT 2.08 cm (M/F) 1.5-2.5 LA Volume 98.40 mL LA Volume Index 49.415557 mL/m2 (M/F) 16-34 M-Mode Dimensions RVDd 4.14 cm (0.9-2.6) LA Diam 5.05 cm (1.9-4.0) LVDd 4.14 cm (3.5-5.7) Ao Diam 4.45 cm (2.0-3.7) LVDs 3.42 cm (3.5-5.7) IVSd 1.22 cm (0.6-1.1) PWd 1.22 cm (0.6-1.1) EF (Teich) 46.90% EPSs 0.46 cm FS 23.30% EDV (Teich) 90.50 mL TAPSE 1.24 (<1.7) ESV (Teich) 48.10 mL LV Diastology E Decel Time 117.00 (160-240 msec) E/A Ratio 2.25 MED E' 10.10 (< 7 cm/sec) E'/MED E' Ratio 10.80 (>14) LAT E' 16.30 (<10 cm/sec) E/LAT E' Ratio 6.69 (>14) Aortic Valve LVOT Max 71.00 (70-110 cm/s) LVOT VTI 13.94 cm AoV Peak Alexei. 97.00 (50-130 cm/s) AI PHT 605.00 ms AO Peak GR. 3.70 mmHg AO Mean GR. 1.90 (<5 mmHg) AO VTI 20.34 (18-25 cm) KARLA (VTI) 2.33 (2.5-4.5 cm2) Mitral Valve MV A Velocity 48.00 (40-130 cm/s) E/A Ratio 2.25 MV Decel. Time 117.00 (160-240 ms) MV PHT 37.00 ms Pulmonary Valve PV Peak Velocity 108.00 (50-150 cm/s) LA End VMAX 269.00 cm/s Tricuspid Valve TR P. Velocity 330.00 cm/s RAP Estimate 10.00 mmHg RVSP 53.70 mmHg Left Ventricle Left atrium is moderately enlarged, left ventricle is normal size, mild concentric left ventricular hypertrophy, estimated ejection fraction approximately 45%, there is abnormal septal motion. Diastolic parameters are inconclusive. Right Ventricle Right atrium is moderately enlarged, right ventricle is moderate to severely enlarged, contractility of the right ventricle is mildly reduced. Aortic valve is thickened and calcified without aortic stenosis, there is mild aortic insufficiency. Mitral Valve Mitral valve leaflets are minimally thickened, there is mild mitral regurgitation. Tricuspid Valve Tricuspid valve grossly normal, there is mild tricuspid regurgitation, calculated right ventricular systolic pressure is 51 mmHg. Pulmonic Valve Pulmonic valve is poorly visualized. Great Vessels Aortic root is normal size. Inferior vena cava is poorly visualized. Pericardium No significant pericardial effusion noted. Conclusion 1. Biatrial enlargement, normal left ventricular size, mild concentric left ventricular hypertrophy, estimated ejection fraction approximately 45%, there is abnormal septal motion, diastolic parameters are inconclusive. 2. Moderate to severe enlargement of the right ventricle with mild reduction in contractility. 3. Mild aortic, mitral and tricuspid regurgitation, calculated right ventricular systolic pressure is 51 mmHg. 4. No significant pericardial effusion noted. 5. Inferior vena cava is poorly visualized. Electronically signed by : Bradford Avalos MD 04/13/2022 16:16:20
--- NOTE | 2022-04-12 09:01 | CA_ITS ---
APPROVED REPORT Exam: Pharmacologic Technologist: Tiffanie Reinoso, Ht: 5 ft 10 in Wt: 185 lbs BSA: 2.02 m2 HR: 89 bpm BP: 136/79 mmHg Indications: SOA Medical History Medications: Aspirin,,,,, Warfarin,,,,, Simvastatin,,,,, Allopurinol,,,,, Albuterol,,,,, Tramadol,,,,, Digoxin,,,,, Toprol XL,,,,, Bevespi,,,,, HydroxyUREA,,,,, Fludrocortisone,,,,, Furosemide,,,,, Stress Test Details Test: LEXISCAN Reason for pharmacologic stress test: physical limitation. HR Resting HR: 77 bpm Max Heart Rate (APMHR): 149.117071 bpm Max HR Achieved: 98 bpm Target HR (85% APMHR): 126.401874 bpm % of APMHR: 65.77 Recovery HR: 88 bpm BP Resting BP: 136/79 mmHg Max BP: 159/81 mmHg Recovery BP: 152.0/77.0 mmHg ECG Resting ECG: Afib, controlled vent. rate, RBBB, rightward axis, ST abns inferiorly Clinical Exercise duration: 04:04 min Highest Stage Achieved: Stress ECG Conclusion Symptoms: Very mild SOA. No CP. Arrhythmias/Ectopy: Frequent ectopic or aberrantly conducted beats. ST-T Changes: No significant changes. Conclusion: Non-diagnostic Lexiscan stress. Myoview images reported separately. Test Summary REST . . . . . . . Sitting REST 04:36 . . 77 . 136/ 79 . . Stage 1 01:00 . . 85 . . . . Stage 2 01:00 . . 87 . 139/ 81 . . Stage 3 01:00 . . 89 . . . . Stage 4 01:00 . . 95 . 159/ 81 . . Stage 4 01:04 . . 70 . 159/ 81 . Stop exercise at 04:04 RECOVERY 01:00 . . 83 . 149/ 84 . . RECOVERY 02:00 . . 81 . 155/ 81 . . RECOVERY 03:00 . . 81 . 155/ 81 . . RECOVERY 04:00 . . 79 . 155/ 81 . . RECOVERY 04:59 . . 87 . 152/ 77 . . Electronically signed by : Bradford Avalos MD 04/13/2022 10:09:46
== END ==
PROVIDERS: PCP Emergency Medicine; Visit Provider Nurse Practitioner
DX: R06.02 Shortness of breath; I25.10 Atherosclerotic heart disease of native coronary artery without angina pectoris; I11.9 Hypertensive heart disease without heart failure; E78.2 Mixed hyperlipidemia; I42.9 Cardiomyopathy, unspecified; I73.9 Peripheral vascular disease, unspecified; I48.20 Chronic atrial fibrillation, unspecified; I71.20 Thoracic aortic aneurysm, without rupture, unspecified
CPT/HCPCS: 78452; 93017; 93306; A9502; J2785

== ENCOUNTER 2022-04-27 09:24 | Day surgery (SDC) | payer MEDICARE, MEDICAID, SELFPAY ==
[2022-04-27] VITALS (16 sets, daily range): BP systolic 104–161; BP diastolic 53–89; PULSE 55–78; RESP 18–20; O2SAT 94–98; BMI 19.1
--- NOTE | 2022-04-27 07:08 | IR_ITS ---
APPROVED REPORT Patient Location: Outpatient PROCEDURES Left heart catheterization Left ventriculogram Selective coronary angiogram INDICATION High risk abnormal Myoview, Systolic congestive heart failure, Known coronary artery disease, Preoperative evaluation Informed consent was obtained prior to the procedure. COMPLICATIONS None Estimated Blood Loss: Less than 10 mls TECHNIQUE One percent lidocaine used to anesthetize the right anterior aspect of the wrist. The right radial artery was accessed via the Seldinger technique. A 6 Hebrew sheath was placed in the right radial artery. 2.5 mg of verapamil, 800 mcg of nitroglycerin, 1mg Lidocaine and 5000 U Heparin were given through the arterial sheath. The papa catheter and a 6 Hebrew JL 3 guide catheter were used to perform left heart catheterization, left ventriculogram and selective coronary angiogram. At the end of the procedure the sheath was removed good hemostasis was achieved using Traclet band, patient was transferred to the postop holding area in stable condition. ANGIOGRAPHIC RESULTS The left main artery Normal The left anterior descending artery Mild proximal mid vessel 20 to 30% stenoses The circumflex artery Nondominant normal The right coronary artery Large dominant and has a smooth 20 to 30% proximal stenosis with a mid vessel 40 to 50% stenosis representing in-stent restenosis. The PDA and PLV B are massively large vessels The SHETH ventriculogram reveals Dilated ventricle global hypokinesis estimate ejection fraction 35% The left ventricular end-diastolic pressure 10 mmHg IMPRESSION Coronary disease as described above Dilated ventricle with reduced ejection fraction Normal left ventricular end-diastolic pressure from a coronary artery standpoint patient is an acceptable risk to proceed with upcoming vascular surgery. Patient does have LV dysfunction therefore he will be at increased risk for arrhythmia. Recommend continued use of beta-blockers perioperatively Cryptogenic thrombocytosis PLAN 1. from a coronary artery standpoint patient is an acceptable risk to proceed with upcoming vascular surgery. Patient does have LV dysfunction therefore he will be at increased risk for arrhythmia. Recommend continued use of beta-blockers perioperatively 2. Standard therapy for systolic heart failure 3. Standard therapy for ischemic heart disease 4. Patient appears to be a candidate for AICD. Because of the gangrenous toe I recommend removing the toe prior to consideration for AICD due to the increased risk of infection. 5. Continue perioperative anticoagulation with Lovenox bridge 6. Refer to hematology oncology for evaluation of severe thrombocytosis Electronically signed by : Param Godoy MD 04/27/2022 12:03:57
[2022-04-27 10:18] LABS: Basophils # 0.1 K/mm3 (0-0.2); Basophils % 0.9 % (0.1-2.0); Eosinophils # 0.4 K/mm3 (0.0-0.4); Eosinophils % 3.7 % (0.1-12.0); Hematocrit 34.7 % (42.0-52.0); Lymphocytes # 1.1 K/mm3 (0.7-4.5); Lymphocytes % 9.8 % (10-50); Mean Corpuscular HGB Conc 28.9 g/dL (31.8-35.4); Mean Corpuscular Hemoglobin 36.5 pg (27.0-31.2); Mean Corpuscular Volume 126.2 fl (80-94); Mean Platelet Volume 8.9 fl (7.4-10.4); Monocytes # 0.5 K/mm3 (0.1-1.0); Monocytes % 4.3 % (1.7-9.3); Neutrophils # 9.1 K/mm3 (1.8-7.8); Neutrophils % 81.2 % (37.0-80.0); Red Blood Count 2.75 M/mm3 (4.60-6.20); Red Cell Distribution Width 16.7 % (11.5-17.5); White Blood Count 11.2 K/mm3 (4.8-10.8)
[2022-04-27 10:24] LABS: INR 3.47 (0.9-1.1); Prothrombin Time 34.9 seconds (10.1-12.5)
[2022-04-27 10:40] LABS: Platelet Count 1002 K/mm3 (142-424)
[2022-04-27 11:08] LABS: Chloride 101 mmol/L (98-107); Sodium 143 mmol/L (136-145)
[2022-04-27 11:11] LABS: Blood Urea Nitrogen 14 mg/dl (9-20); Calcium 8.4 mg/dl (8.4-10.2); Carbon Dioxide 37 mmol/L (22.0-30.0); Creatinine Clearance Estimated 58 mL/min (50-200); Estimated Glomerular Filt Rate 95 ml/min (>60); GFR (African American) 115 ML/MIN (>60); Glucose 96 mg/dl (74-100)
== END 2022-04-27 15:14 | disposition home or self-care (01) ==
LOC: CATHLAB 09:27
PROVIDERS: PCP Emergency Medicine; Visit Provider Internal Medicine
DX: I25.118 Atherosclerotic heart disease of native coronary artery with other forms of angina pectoris; I70.262 Atherosclerosis of native arteries of extremities with gangrene, left leg; I11.0 Hypertensive heart disease with heart failure; I42.9 Cardiomyopathy, unspecified; I48.20 Chronic atrial fibrillation, unspecified; I50.22 Chronic systolic (congestive) heart failure; R06.02 Shortness of breath; E78.2 Mixed hyperlipidemia; R94.39 Abnormal result of other cardiovascular function study; Z79.01 Long term (current) use of anticoagulants; Z79.899 Other long term (current) drug therapy; Z79.64 Long term (current) use of myelosuppressive agent; L97.524 Non-pressure chronic ulcer of other part of left foot with necrosis of bone
CPT/HCPCS: 80048; 85025; 85610; 93458; 99152; 99153; C1725; C1769; C1894; J1644; Q9967

== ENCOUNTER → 2022-05-16 09:47 | Outpatient (CLI) | payer MEDICARE, MEDICAID, SELFPAY | PROVIDERS: PCP Emergency Medicine; Visit Provider Internal Medicine Pulmonary Disease | DX: R06.09 Other forms of dyspnea (principal) ==

== ENCOUNTER 2022-05-17 11:39 | Day surgery (SDC) | payer MEDICARE, MEDICAID, SELFPAY ==
--- NOTE | 2022-05-14 12:55 | SUR.PREOP ---
Pt labs from 04/27/22 shows abnormal results. Notified Tima at Dr. Maldonado's office. To notify MD and get back with us.
--- NOTE | 2022-05-15 08:14 | SUR.PREOP ---
Rec'd written message from Dr. Maldonado that is aware of abnormal labs and okay to proceed. To repeat labs DOS to guide antibiotic therapy.
[2022-05-17] VITALS (8 sets, daily range): BP systolic 86–118; BP diastolic 40–66; PULSE 54–76; RESP 16–18; TEMP 36.1–43; O2SAT 94–100; BMI 24.4
[2022-05-17 12:54] LABS: Potassium 2.6 mmoL/L (3.5-5.1)
--- NOTE | 2022-05-17 13:27 | EXP.ANES.CKL ---
[facility] Disclaimer: The information contained in this section may have been updated after the patient was seen, as this information can be updated by other users. Medical History Abnormal echocardiogram Abnormal stress test Acute osteomyelitis of toe CAD (coronary artery disease) Coronary artery disease Encounter for pre-operative cardiovascular clearance HHD (hypertensive heart disease) Hyperkalemia Hypotension Other nonrheumatic mitral valve disorders PAD (peripheral artery disease) Pre-op examination SOB (shortness of breath) Tachycardia Thoracic aortic aneurysm Family History (Updated 05/17/22 @ 12:10 by Nicci Nevarez RN) Other No significant family history Social History Smoking Status: Current every day smoker tobacco type: cigarettes packs per day: 1 second hand exposure: No alcohol intake: never counseling provided: none substance use type: denies use current occupational status: retired Travel in the last 8 weeks: None household members: other housing: [facility] current occupational exposures/hazards: No caffeine: Yes [facility] Anesthesia Checklist Patient Identification Patient Identification: Arm Band and Family Structural Data Admitted From: Home Planned Operative Procedure/s: Amputation left 2nd and 3rd toe, and debridement of right foot. Consent for Planned Operative Procedure(s) Verified: Yes Verified Documents: Surgical Consent and History and Physical NPO Status Verified Time NPO: 00:00 Additional verifications Patient : No Anesthesia Reactions: No Hx Blood Transfusions: No Blood Transfusion Reaction: No Cephalosporin Allergy: No Previous Colonoscopy: No Airway Assessment C-Spine Mobility Assessed: Yes TMJ Mobility Assessed: Yes Dentition: Edentulous Neurological Assessment Level of Consciousness: Awake, Alert, Appropriate and Follows Commands Hx Seizures: No Numbness or tingling in extremities: Yes Anesthesia Plan Anesthesia Risk discussed: Yes ASA Class: III Anesthesia Type: MAC Preoperative Comments Pre-Operative Comments: COPD, Smoker, low potassium.
--- NOTE | 2022-05-17 13:39 | EXP.OP.NOTE ---
Date of procedure: 05/17/22 Pre-op Diagnosis:: Right foot callus Left 2-3rd toe osteomyelitis Post-op Diagnosis:: Same Procedure performed:: Right foot callus debridement Left 2nd toe amputation Left 3rd toe amputation Surgeon:: Ana Paula Maldonaod DPM ASSISTANT PROFESSOR OF HISTORY:: Other (Tim Merchant) Anesthesia: MAC and local (20cc 0.5% Marcaine plain) Estimated blood loss (mL): 10 Clinical Note:: 71M smoker with small vessel disease who presents for EDWARD and CT review.? CT right foot shows no evidence of osteomyelitis.? Left foot shows osteomyelitis of the second and third digit. EDWARD from 03/27/22: b/l 1.1 and No evidence of significant obstructive peripheral vascular disease of the lower extremities. We discussed conservative versus surgical treatment options. Conservative treatment options include local wound care, oral and IV antibiotics, change in shoe wear, taping/padding, and off-loading. We discussed surgical intervention for amputation of the left 2-3rd toes and right foot wound debridement. Patient understands that there is a chance that the toes can migrate to fill the gap or the foot may change shape after surgery.? Patient also understands that they could have wound healing complications including delayed healing and infection. We discussed that if the wound does not heal, it is possible that they may need a more proximal amputation and could result in further loss of digits, loss of partial foot or loss of leg. We discussed the risks and benefits in great detail. Other surgical risks include: prolonged pain and swelling, further infection requiring oral or IV antibiotics, delay in healing of soft tissue or bone, nerve or blood vessel damage, CRPS/RSD, DVT, anesthesia complications, and even . All questions answered. Patient verbalized understanding. Consent obtained. Operative findings:: Right foot calluses subfifth and sub first metatarsal. No underlying wound or signs of infection noted. Left foot cellulitis to the PIPJ. Cortical erosions, soft crumbly bone consistent with osteomyelitis of the left second and third toes. Previous hallux amputation on the left well-healed. Infection appeared to be localized to the toes. No sinus tracking or evidence of proximal infection Operative note:: On this date and time patient was deemed an appropriate surgical candidate. With informed consent signed, the patient was taken to the operating theater. The patient was positioned supine. MAC anesthesia was induced. No tourniquet used. Pre-op left forefoot block given with 20 cc 0.5% marcaine plain. IV Vanco infused. Right foot callus debridement: Attention was directed to the subfirst, fifth metatarsal where dry scab and callus noted. Utilizing a 15 blade callus was sharply debrided through skin only. No underlying wound noted. Left 2-3rd irrigation and debridement, digit amputation: The left lower extremity was prepped and drapped in normal sterile fashion. Previous hallux amputation noted to the left well-healed incision. Cellulitis is noted extending to the second PIPJ. A fish mouth incision was mapped out. Utilizing a 15 blade dissection was carried down sharply to the level of the bone around the medial phalanx which was disarticulated from the proximal phalanx of both the 2-3rd toes. The middle phalanx bone was soft and crumbly and had a no malodor to it. It was sent for bone biopsy for pathology. Attention was then directed to the proximal phalanx. The head was soft and easily broken, discolored with cortical erosions noted. The left second proximal phalanx was sent for bone culture. The left third proximal phalanx did have some cortical erosions and was soft as well. It was sent as a separate specimen for bone culture. The metatarsal heads were intact with no cortical erosions, discoloration or obvious signs of osteomyelitis. Next gentamicin irrigation was used to flush the wound. The wound was reexplored and no further signs of infection noted. Bleeding controlled.
--- NOTE | 2022-05-17 13:40 | XR_ITS ---
FINAL REPORT CLINICAL HISTORY: post op LT FOOT COMPARISON: None FINDINGS: LEFT FOOT: Three views of the left foot were obtained. There has been amputation of the 1st, 2nd, and 3rd digits at the MTPs. There is a chronic fracture of the distal 5th metatarsal. There is deformity of the distal 3rd metatarsal which may represent subacute or chronic fracture. There are degenerative changes of the 4th and 5th digits. No definite acute bony erosion identified. There is no soft tissue abnormality. IMPRESSION: Amputation of the 1st 2nd and 3rd digits at the MTPs. Deformity of the distal 3rd metatarsal may represent subacute or chronic fracture. Chronic fracture of the distal 5th metatarsal Reviewed, Interpreted and Dictated by Ignacio Chavez III, MD Transcribed by Alisha oBbo Authenticated and [facility]
--- NOTE | 2022-05-17 13:53 | SUR.PHASEII ---
1352 - Report called to Hope @ [facility].
--- NOTE | 2022-05-17 14:15 | SUR.PHASEII ---
1410 - Spoke w/ Dr. Andersen's nurse Gaby about pt's potassium. Orders for PO potassium will be faxed to [facility].
== END 2022-05-17 14:17 | disposition home or self-care (01) ==
PROVIDERS: PCP Emergency Medicine; Visit Provider Podiatrist
PROC: (CPT 11042; principal; 2022-05-17 12:30)
DX: M86.172 Other acute osteomyelitis, left ankle and foot (principal); L84 Corns and callosities; L97.512 Non-pressure chronic ulcer of other part of right foot with fat layer exposed; L97.524 Non-pressure chronic ulcer of other part of left foot with necrosis of bone; Z79.01 Long term (current) use of anticoagulants; Z79.899 Other long term (current) drug therapy; I25.10 Atherosclerotic heart disease of native coronary artery without angina pectoris; I10 Essential (primary) hypertension; F17.210 Nicotine dependence, cigarettes, uncomplicated; Z79.64 Long term (current) use of myelosuppressive agent
CPT/HCPCS: 11042; 28820 ×2; 73630; 84132; 87077; 87186; 88304; 88305; 88311; 96374; J3370

== ENCOUNTER → 2022-05-21 10:16 | Outpatient (CLI) | payer MEDICARE, MEDICAID, SELFPAY ==
[2022-05-21 10:54] VITALS: BMI 24.4
--- NOTE | 2022-05-21 10:56 | XR_ITS ---
FINAL REPORT TECHNIQUE: Single view chest CLINICAL HISTORY: PICC line placement COMPARISON: 04/02/2022 FINDINGS: A single view of the chest was obtained. The heart is mildly enlarged. There is a left PICC with the tip in the SVC. There are mild chronic changes bilaterally consistent with fibrosis, unchanged from prior exam. The lungs are otherwise clear. There is no pneumothorax. Osseous structures are unremarkable. IMPRESSION: No acute cardiopulmonary process. Left PICC with the tip in the SVC. Reviewed, Interpreted and Dictated by Tu Saravia MD Transcribed by Chen Pittman Authenticated and [facility]
== END ==
PROVIDERS: PCP Emergency Medicine; Visit Provider Podiatrist
DX: Z45.2 Encounter for adjustment and management of vascular access device (principal); L03.032 Cellulitis of left toe
CPT/HCPCS: 36569; 71045; C1751

== ENCOUNTER → 2022-06-04 13:02 | Outpatient (CLI) | payer MEDICARE, MEDICAID, SELFPAY ==
[2022-06-04 13:53] VITALS: BMI 24.4
--- NOTE | 2022-06-04 13:53 | XR_ITS ---
FINAL REPORT CLINICAL HISTORY: PICC line placement, evaluate placement of picc line. COMPARISON: May 21, 2022 FINDINGS: A new right-sided PICC line terminates in the mid SVC. The heart size is normal. The mediastinum is within normal limits. There is moderate fibrosis/scarring. There is no pleural effusion. There is no pneumothorax. The bony thorax is intact. IMPRESSION: Right-sided PICC line terminates in the mid SVC. Moderate fibrosis/scarring. Reviewed, Interpreted and Dictated by Ignacio Chavez III, MD Transcribed by Ronal Celestin Authenticated and [facility]
== END ==
PROVIDERS: PCP Emergency Medicine; Visit Provider Emergency Medicine
DX: Z45.2 Encounter for adjustment and management of vascular access device (principal)
CPT/HCPCS: 36410; 36569; 71045; C1751

== ENCOUNTER 2022-06-21 10:11 | Outpatient (CLI) | payer MEDICARE, MEDICAID, SELFPAY | END 2022-06-21 10:19 | disposition home or self-care (01) | PROVIDERS: PCP Emergency Medicine; Visit Provider Podiatrist | DX: L03.032 Cellulitis of left toe (principal) | CPT/HCPCS: G0463 ==

== ENCOUNTER → 2022-06-22 16:19 | Outpatient (CLI) | payer MEDICARE, MEDICAID, SELFPAY ==
[2022-06-22 16:50] LABS: Prothrombin Time 21.7 seconds (10.1-12.5)
== END ==
PROVIDERS: PCP Emergency Medicine; Visit Provider Emergency Medicine
DX: Z51.81 Encounter for therapeutic drug level monitoring (principal); Z79.01 Long term (current) use of anticoagulants; D47.1 Chronic myeloproliferative disease
CPT/HCPCS: 85610; 85730

== ENCOUNTER → 2022-06-28 10:49 | Outpatient (CLI) | payer MEDICARE, MEDICAID, SELFPAY ==
[2022-06-28 11:45] LABS: Basophils # 0.1 K/mm3 (0-0.2); Basophils % 1.1 % (0.1-2.0); Eosinophils # 0.4 K/mm3 (0.0-0.4); Eosinophils % 4.6 % (0.1-12.0); Hematocrit 34.2 % (42.0-52.0); Hemoglobin 9.8 g/dL (14.1-18.0); Lymphocytes # 0.9 K/mm3 (0.7-4.5); Lymphocytes % 11.8 % (10-50); Mean Corpuscular HGB Conc 28.6 g/dL (31.8-35.4); Mean Corpuscular Hemoglobin 33.7 pg (27.0-31.2); Mean Corpuscular Volume 117.7 fl (80-94); Mean Platelet Volume 9.3 fl (7.4-10.4); Monocytes # 0.5 K/mm3 (0.1-1.0); Monocytes % 5.6 % (1.7-9.3); Neutrophils # 6.1 K/mm3 (1.8-7.8); Red Blood Count 2.91 M/mm3 (4.60-6.20); Red Cell Distribution Width 17.6 % (11.5-17.5); White Blood Count 7.9 K/mm3 (4.8-10.8)
[2022-06-28 11:51] LABS: Platelet Count 1225 K/mm3 (142-424)
[2022-06-28 12:05] LABS: Alanine Aminotransferase 9 U/L (12-78); Albumin Level 3.1 g/dl (3.5-5.0); Albumin/Globulin Ratio 0.7 (1.1-1.8); Alkaline Phosphatase 144 U/L (38-126); Aspartate Amino Transferase 21 U/L (17-59); Bilirubin,Total 0.4 mg/dl (0.2-1.3); Blood Urea Nitrogen 34 mg/dl (9-20); Calcium 8.5 mg/dl (8.4-10.2); Carbon Dioxide 34 mmol/L (22.0-30.0); Chloride 105 mmol/L (98-107); Estimated Glomerular Filt Rate 60 ml/min (>60); GFR (African American) 72 ML/MIN (>60); Globulin 4.2 g/dL (1.3-3.2); Glucose 90 mg/dl (74-100); Sodium 144 mmol/L (136-145); Total Protein,Serum 7.3 g/dl (6.3-8.2)
[2022-06-28 12:10] LABS: C-Reactive Protein 29.1 mg/L (0-4)
[2022-06-28 12:48] LABS: Erythrocyte Sedimentation Rate > 140 mm/hr (0-20)
--- NOTE | 2022-06-28 14:21 | CT_ITS ---
FINAL REPORT TECHNIQUE: Axial images were obtained from the lung apex to the mid abdomen by computed tomography. Coronal reformatted images were obtained. This study was performed with techniques to keep radiation doses as low as reasonably achievable, (ALARA). Individualized dose reduction techniques using automated exposure control or adjustment of mA and/or kV according to the patient's size were employed. CLINICAL HISTORY: 3 mth F/U COMPARISON: March 19, 2022 FINDINGS: There is no axillary adenopathy. There is mild mediastinal adenopathy, stable. There is no hilar adenopathy. Heart size is normal. There is an ascending aortic aneurysm measuring 4.5 cm, stable. There are diffuse vascular calcifications. There is no pericardial or pleural effusion. Limited images of the upper abdomen are unremarkable. On the lung window images, there are moderate changes of emphysema with moderate pulmonary scarring. The lateral right upper lobe nodule is visually smaller measuring 9 mm and was 12 mm. No new mass or nodule is identified. There is a small right pleural effusion. IMPRESSION: Partial improvement in lateral right upper lobe nodule. Moderate changes of emphysema and pulmonary scarring, stable. Small right pleural effusion, stable. 4.5 cm ascending aortic aneurysm, stable. Reviewed, Interpreted and Dictated by Ignacio Chavez III, MD Transcribed by Shana Cisneros Authenticated and [facility]
== END ==
PROVIDERS: Nurse Practitioner Family; PCP Emergency Medicine; Visit Provider Internal Medicine Pulmonary Disease
DX: S98.132A Complete traumatic amputation of one left lesser toe, initial encounter (principal); M1A.49X0 Other secondary chronic gout, multiple sites, without tophus (tophi); R91.8 Other nonspecific abnormal finding of lung field
CPT/HCPCS: 36415; 71250; 80053; 85025; 85651; 86140

== ENCOUNTER → 2022-06-28 11:00 | Outpatient (CLI) | payer MEDICARE, MEDICAID, SELFPAY | PROVIDERS: Visit Provider Nurse Practitioner Family | DX: S98.132A Complete traumatic amputation of one left lesser toe, initial encounter (principal); B95.7 Other staphylococcus as the cause of diseases classified elsewhere | CPT/HCPCS: 36415; 71250; 80053; 85025; 85651; 86140; 87070; 87077; 87186; 87205 ==

== ENCOUNTER 2022-07-20 08:37 | Emergency (ER) | payer MEDICARE, MEDICAID, SELFPAY ==
[2022-07-20 08:37] VITALS: BP 108/52; PULSE 111; RESP 17; TEMP 36.6; O2SAT 95; BMI 25.0
--- NOTE | 2022-07-20 08:40 | HMH.EDGENADL ---
Discharge Plan Disposition Patient Disposition: Xfer [facility] Condition: Other Prescriptions Prescriptions: No Action simvastatin 20 mg tablet 20 mg PO DAILY 30 Days Label Comments: allopurinol 300 mg tablet 300 mg PO DAILY 30 Days Label Comments: aspirin [Adult Aspirin Regimen] 81 mg tablet,delayed release (DR/EC) 81 mg PO DAILY furosemide 40 mg tablet 40 mg PO DAILY fludrocortisone 0.1 mg tablet 0.1 mg PO DAILY acetaminophen 500 mg capsule 500 mg PO BID hydroxyurea 500 mg capsule 500 mg PO BID calcium carbonate-vitamin D3 [Oyster Shell Calcium-Vit D3] 500 mg(1,250mg) -200 unit tablet 1 tab PO DAILY albuterol sulfate 90 mcg/actuation HFA aerosol inhaler 1 inh INHALATION QID PRN (Reason: shortness of breath or wheezing) Qty: 8.5 12RF warfarin 2 mg tablet 2 mg PO DAILY mirtazapine 15 mg tablet 15 mg PO tramadol 50 mg tablet 100 mg PO BID Qty: 120 5RF oxycodone 5 mg tablet 5 mg PO Q6H PRN (Reason: post op pain) 7 Days Qty: 30 0RF digoxin 125 MCG tablet 125 mcg PO DAILY Bevespi Aerosphere 9-4.8 mcg HFA aerosol inhaler 2 inh INHALATION BID metoprolol succinate [Toprol XL] 25 mg tablet extended release 24 hr 25 mg PO DAILY Referrals Follow up/Referrals: Ronny Andersen MD [Primary Care Provider] - See instructions Activity Restrictions/Add. Instructions Additional Instructions/Restrictions: You were evaluated in the emergency department today for nosebleed. If your nosebleed recurs, tilt your head forward and apply pressure to the base of your nose. Do not blow or pick your nose, as it may cause it to start bleeding again. Return to the emergency department for any new or concerning symptoms. Clinical Impressions Clinical Impression: Acute anterior epistaxis Instructions Patient Instructions: DI for Nosebleed Discharge ED Provider: Flavia Feldman General Adult HPI General Chief complaint: Epistaxis Stated complaint: nosebleed Time Seen by Provider: 07/20/22 08:58 History of Present Illness HPI narrative: This patient is a 71-year-old male with a history of polycythemia vera, CAD, peripheral artery disease, atrial fibrillation, cardiomyopathy, COPD, hypertension, hyperlipidemia, and alcoholic cirrhosis presenting to the emergency department for evaluation with concern for nosebleed. He is on Coumadin. His nosebleed started around 4:00 this morning from his left nostril. He has not been able to stop it with pressure at his intermediate. He denies any other concerns, such as headaches, lightheadedness, syncope, chest pain, shortness of breath, abdominal pain, nausea, or other issues. He was well prior to this. He is unsure what his last INR was. EMS reported that the patient's nose was hemostatic in route. Upon arrival, it did slightly start using. Related Data Home Medications Medication Instructions Recorded Confirmed allopurinol 300 mg tablet 300 mg PO DAILY gout 30 days 05/21/17 07/10/22 simvastatin 20 mg tablet 20 mg PO DAILY Cholesterol 30 days 05/21/17 07/10/22 digoxin 125 mcg (0.125 mg) tablet 125 mcg PO DAILY Heart rhythm 12/08/18 07/10/22 fludrocortisone 0.1 mg tablet 0.1 mg PO DAILY steroid 09/15/19 07/10/22 furosemide 40 mg tablet 40 mg PO DAILY Fluid 09/15/19 07/10/22 hydroxyurea 500 mg capsule 500 mg PO BID chemo 09/15/19 07/10/22 calcium carbonate 500 mg-vitamin 1 tab PO DAILY Supplement 06/23/20 07/10/22 D3 5 mcg (200 unit) tablet (Oyster Shell Calcium-Vitamin D3) warfarin 2 mg tablet 2 mg PO DAILY Blood thinner 12/04/21 07/10/22 acetaminophen 500 mg capsule 500 mg PO BID Pain 04/02/22 07/10/22 aspirin 81 mg tablet,delayed 81 mg PO DAILY prevent 04/02/22 07/10/22 release (Adult Aspirin Regimen) glycopyrrolate 9 mcg-formoterol 2 inh inhalation BID COPD 05/14/22 07/10/22 4.8 mcg HFA aerosol inhaler (Bevespi Aerosphere) metoprolol succinate 25 mg 25 mg PO JOEL
[2022-07-20 09:01] VITALS: BP 107/48
[2022-07-20 09:24] LABS: Basophils # 0.1 K/mm3 (0-0.2); Basophils % 0.7 % (0.1-2.0); Eosinophils # 0.3 K/mm3 (0.0-0.4); Eosinophils % 4.2 % (0.1-12.0); Hematocrit 30.7 % (42.0-52.0); Hemoglobin 9.2 g/dL (14.1-18.0); Lymphocytes # 1.1 K/mm3 (0.7-4.5); Lymphocytes % 14.1 % (10-50); Mean Corpuscular HGB Conc 30.1 g/dL (31.8-35.4); Mean Corpuscular Hemoglobin 33.7 pg (27.0-31.2); Mean Corpuscular Volume 111.8 fl (80-94); Mean Platelet Volume 9.2 fl (7.4-10.4); Monocytes # 0.6 K/mm3 (0.1-1.0); Monocytes % 6.9 % (1.7-9.3); Neutrophils % 74.1 % (37.0-80.0); Platelet Count 602 K/mm3 (142-424); Red Blood Count 2.74 M/mm3 (4.60-6.20); Red Cell Distribution Width 18.2 % (11.5-17.5); White Blood Count 8.1 K/mm3 (4.8-10.8)
[2022-07-20 09:30] VITALS: BP 106/56
[2022-07-20 09:43] LABS: Chloride 107 mmol/L (98-107)
[2022-07-20 09:44] LABS: Activated Partial Thrombo Time 38.4 seconds (22.8-30.6); INR 1.99 (0.9-1.1); Potassium 3.8 mmoL/L (3.5-5.1); Prothrombin Time 20.7 seconds (10.1-12.5); Sodium 143 mmol/L (136-145)
[2022-07-20 09:46] LABS: Alanine Aminotransferase 12 U/L (12-78); Aspartate Amino Transferase 30 U/L (17-59); Blood Urea Nitrogen 28 mg/dl (9-20); Creatinine Clearance Estimated 80 mL/min (50-200); Estimated Glomerular Filt Rate 74 ml/min (>60); GFR (African American) 89 ML/MIN (>60)
[2022-07-20 09:47] LABS: Albumin Level 2.9 g/dl (3.5-5.0); Albumin/Globulin Ratio 0.7 (1.1-1.8); Alkaline Phosphatase 118 U/L (38-126); Anion Gap 8.8 mEq/L (5-15); Bilirubin,Total 0.6 mg/dl (0.2-1.3); Calcium 8.1 mg/dl (8.4-10.2); Carbon Dioxide 31 mmol/L (22.0-30.0); Globulin 3.9 g/dL (1.3-3.2); Glucose 120 mg/dl (74-100); Total Protein,Serum 6.8 g/dl (6.3-8.2)
--- NOTE | 2022-07-20 09:48 | PC.NURSE ---
pt ambulatory to the restroom with no complications
--- NOTE | 2022-07-20 09:54 | PC.NURSE ---
pt report called to [facility] to [facility]
--- NOTE | 2022-07-20 10:04 | PC.NURSE ---
called [facility] for transport
[2022-07-20 10:31] VITALS: BP 105/87; PULSE 92; RESP 17; TEMP 36.6; O2SAT 96
== END 2022-07-20 10:35 ==
PROVIDERS: Emergency Provider Emergency Medicine; PCP Emergency Medicine
DX: R04.0 Epistaxis (principal); D45 Polycythemia vera; Z79.01 Long term (current) use of anticoagulants
CPT/HCPCS: 80053; 85025; 85610; 85730; 99284; 99285

== ENCOUNTER → 2022-07-31 12:53 | Outpatient (CLI) | payer MEDICARE, MEDICAID, SELFPAY ==
--- NOTE | 2022-07-31 13:02 | XR_ITS ---
FINAL REPORT CLINICAL HISTORY: post-op foot amputation COMPARISON: 05/17/2022 FINDINGS: LEFT FOOT Three views of the left foot demonstrate represents postoperative changes from amputation of the 1st 2nd and 3rd digits at the metatarsophalangeal joint. There is a chronic fracture of the distal 5th metatarsal. No acute fracture or dislocation is identified. There are mild degenerative changes. The soft tissues are unremarkable. IMPRESSION: Postoperative and degenerative change as above with no acute bony abnormality Reviewed, Interpreted and Dictated by Ignacio Chavez III, MD Transcribed by Shana Cisneros Authenticated and [facility]
== END ==
PROVIDERS: PCP Emergency Medicine; Visit Provider Podiatrist
DX: T81.31XA Disruption of external operation (surgical) wound, not elsewhere classified, initial encounter (principal); Z98.890 Other specified postprocedural states; L97.519 Non-pressure chronic ulcer of other part of right foot with unspecified severity; B96.89 Other specified bacterial agents as the cause of diseases classified elsewhere
CPT/HCPCS: 73630; 87070; 87077; 87186; 87205

== ENCOUNTER → 2022-07-31 23:32 | Outpatient (CLI) | payer MEDICARE, MEDICAID, SELFPAY | PROVIDERS: PCP Emergency Medicine; Visit Provider Podiatrist | DX: Z98.890 Other specified postprocedural states (principal) ==

== ENCOUNTER → 2022-08-06 11:06 | Outpatient (CLI) | payer MEDICARE, MEDICAID, SELFPAY ==
--- NOTE | 2022-08-06 11:08 | FL_ITS ---
FINAL REPORT CLINICAL HISTORY: . 2:54 fluoro time FINDINGS: MODIFIED BARIUM SWALLOW History: Dysphagia FINDINGS: Fluoroscopy was provided for the speech pathologist to evaluate the swallowing mechanism. The patient was given several different consistencies of barium while the swallow was visualized fluoroscopically. The report of the speech pathologist should be consulted prior to making dietary decisions. FLUOROSCOPY TIME: 2.54 minutes IMPRESSION: Modified barium swallow under fluoroscopic guidance. Please see the report of the speech pathologist for Dietary recommendations. Films reviewed , interpreted and dictated by Dr. Chavez Transcribed by Constantine Toledo PA-C. Reviewed, Interpreted and Dictated by Ignacio Chavez III, MD Transcribed by TONNY Parker Authenticated and [facility]
--- NOTE | 2022-08-06 16:10 | HMH.SLMBS2 ---
Speech & Language Evaluation Speech/Language Mod Barium Swallow Start: 08/06/22 14:52 Freq: once Status: Complete Protocol: Document 08/06/22 14:52 ALIYAH (Rec: 08/06/22 16:09 ALIYAH [id number]) General Information General Dentition Edentulous Oxygen Status Room Air Facial Symmetry Symmetrical Ability to Follow Directions Excellent Communication Ability No Impairment MBS Recommendations Diet Dietary Recommendations Mechanical Soft,Thin Liquids Treatment/Strategies Strategy/Precaution Recommend Sitting Upright (90 deg), Double Swallow,Small Bites and Sips,Alternate Liquids/Solids Mod Barium Swallow Impressions Summary and Impressions Oral Phase Impression Mild Impairment Oral Phase Summary Mildly impaired oral phase. Mildly prolonged mastication of mechanical soft and regular textures. Premature spillage to the pyriform sinuses with thin liquids 2' decreased back of tongue control. No significant oral residue was noted. Pharyngeal Phase Impression Moderate Impairment Pharyngeal Phase Summary Moderately impaired pharyngeal phase. Aspiration x1 with a large, uncontrolled drink. The majority of the material was cleared upon completed of the pharyngeal, but a minimal amount did deepen and fall below the vocal folds. Aspiration occurred during the swallow. Intermittent transient penetration with thin liquids throughout the study, however, penetrated material cleared from the laryngeal vestibule upon completion of the pharyngeal swallow. Penetration 2' reduced hyolaryngeal elevation and excursion and premature spillage. Moderate vallecular residue with liquids after the swallow 2' significantly retroflexed epiglottis that is unable to fully invert during the swallow, trapping material in the valleculae. Pt
== END ==
PROVIDERS: PCP Emergency Medicine; Visit Provider Emergency Medicine
DX: R13.10 Dysphagia, unspecified (principal)
CPT/HCPCS: 70371; 92611

== ENCOUNTER → 2022-08-23 09:30 | Outpatient (CLI) | payer MEDICARE, MEDICAID, SELFPAY | PROVIDERS: Visit Provider Podiatrist | DX: L97.519 Non-pressure chronic ulcer of other part of right foot with unspecified severity (principal); B96.1 Klebsiella pneumoniae [K. pneumoniae] as the cause of diseases classified elsewhere; B95.2 Enterococcus as the cause of diseases classified elsewhere | CPT/HCPCS: 87070; 87077; 87186; 87205 ==